=== PATIENT | female | born 1945 | race Caucasian/White ===

== ENCOUNTER → 2017-01-04 | Outpatient (CLI) | payer MEDICARE, OTHER ==
[~2017-01-04] MED LIST: ALBUTEROL2 PUFFS/17 IN; AMOXICILLIN 50500 MG PO; ASPIR-TRIN325 MG PO; ASTELIN NA137 MCG/BO; AZITHROMYCIN250 M1 PO; LEVAQUIN500 MG PO; LORTAB 5/500 501 TAB PT; MEDROL 4MG. DOSE4 MG PO; RANITIDINE HCL150 MG PO; TESSALON PERLE100 MG PO; VALIUM 10MG TAB10 MG PO; ZOFRAN ODT8 MG PO; ZYRTEC 10MG TAB10 MG PO
--- NOTE | 2017-01-05 08:53 | RADIOLOGY REPORT PS360 ---
MRI-UP EXT ANY JNT W/O-RT HISTORY: Right shoulder pain with limited range of motion and weakness RIGHT SHOULDER PAIN ORDERING PHYSICIAN: Mendel Stein MD PATIENT AGE: 71 years COMPARISON: Radiograph of 12/23/2016 TECHNIQUE: Standard multiplanar multiecho sequences are performed without contrast. FINDINGS: There is mild degree motion artifact with decreased yrnxuj-qz-dmuos ratio. IMPRESSION: There is mild acromioclavicular arthropathy with hypertrophic change of the acromioclavicular joint. There is thickening of the supraspinatus tendon consistent with tendinopathy/tendinosis. Along the posterior aspect of the supraspinatus tendon there is a full-thickness tear. The supraspinatus tendon and muscle however are not contracted with the main substance an anterior aspect of the supraspinatus tendon is intact. There is a small amount fluid in subacromial and subdeltoid region. There is some thickening of the infraspinatus tendon consistent with tendinopathy/tendinosis. The subscapularis and teres minor tendons are intact. No obvious labral tear. Bicipital tendon is in place. No bone bruise or fracture. There is slight increased T2 signal involving the greater tuberosity which may be seen with rotator cup disease. IMPRESSION: 1. Tendinopathy/tendinosis of the supraspinatus tendon with a full-thickness tear involving the posterior and lateral aspect of the supraspinatus tendon. The mid and anterior aspect of the supraspinatus tendon however is intact. No evidence of musculotendinous retraction. 2. No other significant anomalies evident
== END ==
LOC: RAD 14:45
DX: M25.511 Pain in right shoulder (principal)

== ENCOUNTER → 2017-04-28 | Outpatient (CLI) | payer MEDICARE, OTHER ==
--- NOTE | 2017-04-28 13:40 | RADIOLOGY REPORT PS360 ---
FEMUR-RT-2 VIEWS HISTORY: Right leg pain with history of lung cancer RT LEG PAIN, LUNG CA ORDERING PHYSICIAN: Mendel Stein MD PATIENT AGE: 71 years COMPARISON: None FINDINGS: No fracture or dislocation. No lytic or blastic change. IMPRESSION: Negative right femur.
--- NOTE | 2017-04-28 13:41 | RADIOLOGY REPORT PS360 ---
HIP RT 2-3V W/PELVIS IF PERFOR HISTORY: Right hip pain RT LEG PAIN, LUNG CA ORDERING PHYSICIAN: Mendel Stein MD PATIENT AGE: 71 years COMPARISON: None FINDINGS: No fracture or dislocation is evident. There are mild osteoarthritic changes of the hip. No lytic or blastic change. IMPRESSION: 1. No acute finding. 2. Mild osteoarthritic change. If pain persists, consider bone scan for further evaluation in this patient with history of lung cancer
--- NOTE | 2017-04-28 13:42 | RADIOLOGY REPORT PS360 ---
KNEE-3 VIEWS-RT HISTORY: RT LEG PAIN, LUNG CA ORDERING PHYSICIAN: Mendel Stein MD PATIENT AGE: 71 years COMPARISON: None FINDINGS: No fracture or dislocation. No lytic or blastic change. Normal mineralization. No significant arthritic changes evident. No other significant findings IMPRESSION: Negative Knee, no bony destructive process. Consider whole body bone scan for further evaluation if pain persists in this patient with history of lung cancer
== END ==
LOC: RAD 12:06
DX: M79.604 Pain in right leg (principal); C34.92 Malignant neoplasm of unspecified part of left bronchus or lung

== ENCOUNTER → 2017-05-13 | Outpatient (CLI) | payer MEDICARE, OTHER ==
[~2017-05-13] MED LIST changes: +ACETAMINOPHEN &1 TA1 PO; +DIAZEPAM10 M1 PO; +FAMOTIDINE 20MG20 MG PO; +GABAPENTIN100 MG PO
[2017-05-13 12:39] LABS: BUN 10 mg/dL (7-18)
[2017-05-13 12:43] LABS: GFR (ESTIMATED) 71 ML/MIN (59-)
--- NOTE | 2017-05-13 14:20 | RADIOLOGY REPORT PS360 ---
CT SOFT TISSUE NECK W/CONTRAST INDICATION: Bilateral palpable neck masses with history of lung cancer PALPATABLE MASS NECK ORDERING PHYSICIAN: Mendel Stein MD PATIENT AGE: 71 years COMPARISON: None TECHNIQUE: Axial images are obtained with 75 mL's of Isovue-370 contrast. Sagittal and coronal reformatted images are reviewed as well. FINDINGS: No cervical adenopathy is evident. BBs are placed over the area of palpable abnormality. Palpable abnormalities correspond to mildly prominent submandibular lymph nodes appear symmetric. No submandibular mass is evident. There are small bilateral cervical nodes measuring up to 1.9 x 0.9 cm and the left jugular chain and 1.2 x 0.6 cm and the right jugular chain representing level 2 lymph nodes. The thyroid gland has an unremarkable appearance. There are small nodes in the mediastinum and axilla. The glottic region and nasopharynx and epiglottis have an unremarkable appearance. Centrilobular emphysematous changes are present and there is mild scarring in the lung apices. No acute bony findings. IMPRESSION: 1. Bilateral palpable neck masses corresponds to prominent submandibular glands. 2. There are small bilateral cervical lymph nodes measuring up to 1.9 x 0.9 cm on the left.
== END ==
LOC: RAD 12:20
PROVIDERS: Family Medicine
DX: R22.1 Localized swelling, mass and lump, neck (principal)
CPT/HCPCS: Q9967

== ENCOUNTER 2017-05-27 16:21 | Inpatient (IN) | payer MEDICARE, OTHER ==
[~2017-05-27] VITALS: Ht 162.6 cm; Wt 53.3 kg
[~2017-05-27 16:21] MED LIST changes: -ACETAMINOPHEN &1 TA1 PO; -DIAZEPAM10 M1 PO; -FAMOTIDINE 20MG20 MG PO; -GABAPENTIN100 MG PO
[2017-05-27 16:24] VITALS: BP 119/67
--- NOTE | 2017-05-27 16:39 | Emergency Room Report ---
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 N Clinical Suspician of Infection? N Mental Status: 1 - Regular (Normal Baseline) Sepsis Risk:Low Sepsis Risk Have you (or family members/close friends) recently traveled outside the [place]? N If Yes, where/when: Have you had exposure to infectious disease within the past month? TB? Other? Specify: Source patient, RN notes reviewed Exam Limitations no limitations Comment Pt has a history of Lung Cancer and had a resection of left lung in September, and is still on Chemotherapy. Over the past 2 days she has developed a bad cough with Clear white phlegm production and become more SOA She has not been running a fever but has a temp=99.1 today. She is on inhalers at home but not on home O2 and no nebulizer at home Cardiac Chest Pain Chest pain indicative of cardiac No ALLERGIES Coded Allergies: fexofenadine (HEART RACES 05/27/17) codeine (NA-NAUSEA/VOMITING 05/27/17) metronidazole (From FLAGYL) (NA-NAUSEA/VOMITING 05/27/17) morphine (NA-NAUSEA/VOMITING 05/27/17) Home Medications Active Scripts Ondansetron (Zofran 8MG Odt) 8 MG PO Q8HP PRN nausea #20 ODT Prov: 08/06/14 Aspirin (Aspir-Hannah) 325 MG PO DAILY #30 ECT Ref 11 Prov: 11/08/13 Reported Medications Cetirizine Hcl (All Day Allergy) 10 MG PO DAILY Albuterol (Albuterol Inhaler 17GM) 2 PUFFS IN BID #1 INH AZELASTINE HCL (Astelin) 2 SPRAY NA BID #1 BOT Ranitidine Hcl (Ranitidine 150MG) 300 MG PO BID Diazepam (Valium 10MG) 10 MG PO BID Acetaminophen W/ Hydrocodone (Lortab 5/500) 10 MG PT BID Levofloxacin (Levaquin 500MG) 500 MG PO DAILY History Medical History General CAD? No Angina: Yes MS: No Hypertension? No Hyperlipidemia? No CHF? No DVT? No PE? No COPD? Yes Asthma? No Anemia? No GERD? No Gastric ulcers? No GI Bleed? No Hernia? No Thyroid Problems? No Hypothyroidism? No CVA? Yes Seizures? No Diabetes? No Renal Insuffiency? No End Stage Renal Disease? No UTI? No Stones? No BPH? No GB Disease: Yes Nephritic Syndrome? No Asplenia? No Hepatitis? No Sickle Cell Disease? No Arthritis? No Migraines? No Cataracts? No Glaucoma? No MRSA? No HIV? No TB? No Anxiety? No Depression? No Cancer? Yes Site: LUNG Immunization Hx Ped.Immunizations UTD Yes DT/Tetanus < 1 YR AGO Flu 2YRSorMore Pneumonia Refuses Surgical Hx Previous Surgery?Y CYST RT BREAST TUBAL GALLBLADDER LEFT ROTATOR CUFF LEFT LUNG CA SURGERY Family History Family Hx Diabetes No CAD No Hypertension Yes Hyperlipidemia Yes Cancer Yes TB No Social History Smoking Hx Smoker: Current Every Day Smoker Tobacco: Yes Type Cigarettes Packs/day < 1 Pack Alcohol Alcohol: No Review of Systems All Other Systems Reviewed and Negative Constitutional see HPI Respiratory see HPI Physical Exam Vital Signs Vital Signs Date Time Temp Pulse Resp B/P Pulse O2 O2 Flow FiO2 Ox Delivery Rate 05/27 1642 76 05/27 1624 99.1 125 18 119/67 67 General Appearance mild distress Respiratory Status Yes: respiratory distress. Lung Sounds bilateral: rales, rhonchi. Cardiovascular regular rate/rhythm Neurologic alert, alum operator II-XII nml as tested, normal exam Medical Decision Making LABS/Meds/Orders Pt receiving controlled substance in ED? No Results/Orders Laboratory Tests 05/27/17 1702: ABG pH 7.41, ABG pCO2 (Temp Corrct 52.4 H, ABG pO2 (Temp Correct 27.0 *L, ABG HCO3 32.5 H, ABG Total CO2 34.1 H, ABG O2 Sat (Calculated) 51.7 *L, ABG Base Excess 7.8 H, Sina Test ACCEPTABLE 05/27/17 1642: Lactic Acid Cancelled 05/27/17 1642: Sodium Cancelled, Potassium Cancelled, Chloride Cancelled, Carbon Dioxide Cancelled, BUN Cancelled, Creatinine Cancelled, Estimated Creat Clear Cancelled, Estimated GFR (MDRD) Cancelled, Glucose Cancelled, Calcium Cancelled, Total Bilirubin Cancelled, AST Cancelled, ALT Cancelled, Alkaline Phosphatase Cancelled, Total Protein Cancelled, Albumin Cancelled, Globulin Cancelled, Albumin/Globulin Ratio Cancelled, WBC Cancelled, RBC Cancelled, Hgb Cancelled, Hct Cancelled, MCV Cancelled, RDW Cancelled, Plt Count Cancelled, Gran % Cancelled, Gran # Cancelled, Lymphocytes % Cancelled, Eosinophils % Cancelled, Basophils % Cancelled, Lymphocytes # Cancelled, Eosinophils # Cancelled, Basophils # Cancelled, PUBS MCHC Cancelled, MCH Cancelled 05/27/17 163: Lactic Acid 1.6 05/27/17 163: Sodium 143, Potassium 3.3 L, Chloride 101, Carbon Dioxide 32, BUN 9, Creatinine 0.8, Estimated Creat Clear 54, Estimated GFR (MDRD) 71, Glucose 110 H, Calcium 9.3, Total Bilirubin 0.6, AST 20, ALT 17, Alkaline Phosphatase 129 H, Total Protein 7.3, Albumin 3.1 L, Globulin 4.2 H, Albumin/Globulin Ratio 0.7 L, WBC 9.0, RBC 3.37 L, Hgb 10.4 L, Hct 33.0 L, MCV 98.2 H, RDW 18.1 H, Plt Count 86 L, MPV 9.3, Gran % 74.1, Gran # 6.7, Lymphocytes % 16.2, Monocytes % 8.4, Eosinophils % 1.0, Basophils % 0.3, Lymphocytes # 1.5, Monocytes # 0.8, Eosinophils # 0.1, Basophils # 0.0, PUBS MCHC 31.4 L, MCH 30.8 Current Medication Orders Sig/Abdi Start time Last Medication Dose Route Stop Time Status Admin Albuterol/Ipratropium 0 .STK-MED ONE 05/27 1647 DC INH Albuterol/Ipratropium 3 ML ONCE ONE 05/27 1645 DC INH 05/27 1646 Sodium Chloride 1,000 ML .Q1H1M 05/27 1645 DC IV 05/27 1745 Sodium Chloride 10 ML PRN PRN 05/27 1645 AC IV 05/28 164 Albuterol/Ipratropium 3 ML ONCE ONE 05/27 1630 DC 05/27 INH 05/27 1631 1658 Sodium Chloride 10 ML PRN PRN 05/27 1630 AC IV 05/28 1630 Orders Procedure Date/time Status DIET-NOTHING BY MOUTH 05/[address] CHEST W/ CONTRAST 05/[address] CHEST SCAN REQ 05/27 1846 Complete IV SALINE LOCK 05/27 1642 Active RT REQUEST DUONEB 05/27 1641 Active ARTERIAL BLOOD GAS REQUEST 05/27 1641 Active IV SALINE LOCK 05/27 1641 Active OXYGEN PER NURSE 05/27 1641 Active CULTURE, SPUTUM 05/27 1641 Active CULTURE, BLOOD 05/27 1641 Active LACTIC ACID 05/27 1641 Complete CBC WITH AUTO DIFF 05/27 1641 Complete CHEM 12 PROFILE 05/27 1641 Complete XRAY/CT/US XRAY/CT/US XRAY chest XR interpretation by discussed w/radiologist Xray Results RLL pneumonia and ? left hilar infiltrate...could be mass, could be scar tissue...Radiologist recommends CT with IV contrast Departure Departure Time of Disposition 1951 Disposition Still a Patient Clinical Impression Primary Impression: Lung cancer Qualifiers: Laterality: left Lung location: hilum of lung Qualified Code: C34.02 - Malignant neoplasm of left main bronchus Secondary Impressions: COPD with acute exacerbation RLL pneumonia Qualifiers: Pneumonia type: due to unspecified organism Qualified Code: J18.1 - Lobar pneumonia, unspecified organism Condition STABLE Referrals Mendel Stein MD (Family) Additional Instructions Admitted to OBS to Dr. Stein with Dr. Adan covering for Pneumonia and Lung cancer Discharge Counseling Counseled pt/family regarding diagnosis, test results, follow up needs ED Critical Care Critical Care No If Critical Care minutes are documented, the time involved in the performance of seperately reportable procedures was not counted toward critical care time documented. I directly delivered medical care to this critically ill and/or injured patient. Timely evaluation and treatment was necessary to address the significant organ system(s) dysfunction present in this patient. at 1955
[2017-05-27 17:01] LABS: LYMPH # 1.5 K/mm3 (0.7-4.5); LYMPH % 16.2 % (10-50.0)
[2017-05-27 17:14] LABS: HEMOGLOBIN 10.4 g/dL (12.2-16.2)
[2017-05-27 17:14] LABS: ARTERIAL TCO2 34.1 MMOL/L (23-27)
[2017-05-27 17:15] LABS: ARTERIAL ABE 7.8 MMOL/L (-2.4-+2.3)
[2017-05-27 17:16] LABS: ALLEN'S TEST ACCEPTABLE
--- NOTE | 2017-05-27 18:20 | RADIOLOGY REPORT PS360 ---
CHEST-PORTABLE HISTORY: SOA ORDERING PHYSICIAN: Gorge Leung MD PATIENT AGE: 71 years COMPARISON: 01/20/2017 FINDINGS: Normal heart size. There is some ectasia/tortuosity of the thoracic aorta.. Clips are present in the left perihilar region. There is some increased density in this area. Somewhat more prominent than when compared to the previous exam and could be related to underlying pneumonia or residual or recurrent neoplasm. Chronic changes are present in the lingula on the left. Patchy density is present in the right lung base suspicious for infiltrate. No acute bony anomalies. IMPRESSION: 1. Patchy infiltrate and/or atelectatic change in the right lung base. 2. Postsurgical changes left hilum with increasing density which may be due to consolidation and/or residual recurrent neoplasm versus fibrotic change. Chest CT with contrast may be of further value
--- OUTSIDE RECORDS SUMMARY | 2017-05-27 19:18 | External Medical Summary Rpt ---
Author Author [facility] Address Unknown Phone Unavailable Care Team Providers Care Counter Clerk Name Role Phone Chriss YOUNG PCP [phone] Encounter [facility] [id number] Date(s): 10/06/16 - 10/06/[facility] [address] [place] [phone]- [phone] Discharge Disposition: OP Self Care or Home Attending Physician: SAY MARTINES MD-CAT Admitting Physician: SAY MARTINES MD-CAT Referring Physician: SAY MARTINES MD-CAT Reason for Visit OTHER NONSPECIFIC ABNORMAL FINDING OF LUNG FIELD Vital Signs No data available for this section Problem List Condition Effective Status Health Informant Dates Status Allergic Active rhinitis(Con firmed) Arthritis(Co Active nfirmed) Back Active pain(Confirm ed) Bronchitis(C Active onfirmed) Bursitis(Con Active firmed) COPD Active (chronic obstructive pulmonary disease)(Con firmed) GERD - Active Gastro-esoph ageal reflux disease(Conf irmed) H/O: TIA- Active 2014(Confirm ed) Incontinence Active , urinary(Conf irmed) Lung Active mass(Confirm ed) Pneumonia- Active 2014 & 2013(Confirm ed) Sinusitis(Co Active nfirmed) Allergies, Adverse Reactions, Alerts Substance Reaction Severity Status Tara palpitations Active codeine Nausea and vomiting Active morphine Nausea and vomiting Active Medications No data available for this section Results No data available for this section Immunizations No data available for this section Procedures No data available for this section Social History Social History Response Type Smoking Status Current every day smoker; Smoking Frequency Within Last 30 Days Five or more cigarettes per day; Years of Tobacco Use 50; Packs/Tins Daily .5; Used Tobacco, but Quit No; Month Tobacco Last Used September 2015; Smokeless Tobacco Use in Last 30 Days Yes Assessment and Plan No data available for this section Hospital Discharge Instructions No data available for this section
--- OUTSIDE RECORDS SUMMARY | 2017-05-27 19:18 | External Medical Summary Rpt ---
Author Author [facility] Organization [facility] Address Unknown Phone Unavailable Care Team Providers Care Client Services Associate Name Role Phone Chriss YOUNG PCP [phone] Encounter [facility] Date(s): 12/06/16 - 12/13/16 [facility] [address] [place] [id number]- Discharge Disposition: OP Self Care or Home Attending Physician: KELSIE PALMER MD-ONC Admitting Physician: KELSIE PALMER MD-ONC Referring Physician: KELSIE PALMER MD-ONC Reason for Visit Z85.110 Vital Signs Most recent 1 to oldest [Reference Range]: Temperature, 97.8 Deg F Fahrenheit (12/13/16 8:42 AM) [96.8-99.7 Deg F] Clinical 36.6 Deg C Temperature, (12/13/16 8:42 AM) C Peripheral 78 bpm Pulse Rate (12/13/16 8:42 AM) [60-100 bpm] Blood 113/64 mmHg Pressure (12/13/16 8:42 AM) [90-140/60-9 0 mmHg] Oxygen 91 % Saturation *LOW* [94-100 %] (12/13/16 8:42 AM) Height Measured Source (12/13/16 8:42 AM) Height Entry [place] Format (12/13/16 8:42 AM) Height/Lengt 64 Inch h ARAB[place] (12/13/16 8:42 AM) CLINICALHEIG 162.56 cm HT (12/13/16 8:42 AM) Weight Standing scale Source (12/13/16 8:42 AM) Weight Entry [place] Format (12/13/16 8:42 AM) Weight 141 lb [place] lb (12/13/16 8:42 AM) CLINICALWEIG 64.09 kg HT (12/13/16 8:42 AM) Body Surface 1.69 m2 Area (BSA) (12/13/16 8:42 AM) Body Mass 24.3 kg/m2 Index *HI* [19.0-24.0 (12/13/16 8:42 AM) kg/m2] [place] Body 54 kg Weight (12/13/16 8:42 AM) Problem List Condition Effective Status Health Informant Dates Status Allergic Active rhinitis(Con firmed) Arthritis(Co Active nfirmed) Back Active pain(Confirm ed) Bronchitis(C Active onfirmed) Bursitis(Con Active firmed) CA - Lung Active patient cancer(Confi rmed) COPD Active (chronic obstructive pulmonary disease)(Con firmed) GERD - Active Gastro-esoph ageal reflux disease(Conf irmed) H/O: TIA- Active 2014(Confirm ed) Incontinence Active , urinary(Conf irmed) Lung Active mass(Confirm ed) Pneumonia- Active 2014 & 2013(Confirm ed) Sinusitis(Co Active nfirmed) Allergies, Adverse Reactions, Alerts Substance Reaction Severity Status Tara palpitations Active codeine Nausea and vomiting Active morphine Nausea and vomiting Active Medications acetaminophen-hydrocodone ([place] 10 mg-325 mg oral tablet)1 Tab, Oral, Every 4 Hours, As Needed, for pain, Refills: 0 albuterol-ipratropium (Combivent Respimat)2 Puff, Inhalation, Two Times A Day, Refills: 0 aspirin (aspirin 325 mg oral tablet) 1 Tab, Oral, Every Day, Refills: 0 azelastine nasal (azelastine 137 mcg/inh ( 0.1%) nasal spray)1 [place], Nasal, Two Times A Day, Refills: 0 diazepam (diazepam 10 mg oral tablet)1 Tab, Oral, Two Times A Day, As Needed, for anxiety, Refills: 0 esomeprazole (NexIUM 40 mg oral delayed release capsule)1 Cap, Oral, Every Day, Refills: 0 ibuprofen (ibuprofen 800 mg oral tablet) 1 Tab, Oral, Three Times A Day, Refills: 0 montelukast (Singulair 10 mg oral tablet) 1 Tab, Oral, At Bedtime, Refills: 0 Results COAGULATION Most recent 1 to oldest [Reference Range]: PT [9.5-11.3 10.4 Second(s) Second(s)] (12/13/16 8:32 AM) INR 1.0 [0.0-1.1] (12/13/16 8:32 AM) Immunizations No data available for this section Procedures Procedure Date Related Body Site Diagnosis elbow surgury lung resection Social History Social History Response Type Tobacco Last Used: 12/13/16. Assessment and Plan No data available for this section Hospital Discharge Instructions No data available for this section
--- OUTSIDE RECORDS SUMMARY | 2017-05-27 19:18 | External Medical Summary Rpt ---
Author Author [facility] Organization [facility] Address Unknown Phone Unavailable Care Team Providers Care Integrated Logistics Operations Manager Name Role Phone Chriss YOUNG PCP [phone] Encounter [facility] Date(s): 12/06/16 - 12/13/16 [facility] [address] [place] [phone]- Discharge Disposition: OP Self Care or Home [...] Measured Source (12/13/16 8:42 AM) Height Entry [place] Format (12/13/16 8:42 AM) Height/Lengt 64 Inch h [place] (12/13/16 8:42 AM) CLINICALHEIG 162.56 cm HT (12/13/16 8:42 AM) Weight Standing scale Source (12/13/16 8:42 AM) Weight Entry [place] Format (12/13/16 8:42 AM) Weight 141 lb [place] lb (12/13/16 8:42 AM) CLINICALWEIG 64.09 kg HT (12/13/16 8:42 AM) Body Surface 1.69 m2 Area (BSA) (12/13/16 8:42 AM) Body Mass 24.3 kg/m2 Index *HI* [19.0-24.0 (12/13/16 8:42 AM) kg/m2] [place] Body 54 kg Weight (12/13/16 8:42 AM) [...] morphine Nausea and vomiting Active Medications acetaminophen-hydrocodone ([place] 10 mg-325 mg oral tablet)1 Tab, Oral, Every 4 Hours, As Needed, for pain, Refills: 0 albuterol-ipratropium (Combivent Respimat)2 Puff, Inhalation, Two Times A Day, Refills: 0 aspirin (aspirin 325 mg oral tablet) 1 Tab, Oral, Every Day, Refills: 0 azelastine nasal (azelastine 137 mcg/inh ( 0.1%) nasal spray)1 [place], Nasal, Two Times A Day, Refills: 0 [...]
--- OUTSIDE RECORDS SUMMARY | 2017-05-27 19:18 | External Medical Summary Rpt ---
Author Author [facility] Organization [facility] Address Unknown Phone Unavailable Care Team Providers Care Parts Delivery Driver Name Role Phone Chriss YOUNG PCP [phone] Encounter [facility] [id number] Date(s): 10/06/16 - 10/06/16 [facility] [address] [place] [phone] Discharge Disposition: OP Self Care or Home [...]
--- OUTSIDE RECORDS SUMMARY | 2017-05-27 19:19 | External Medical Summary Rpt | CCD ---
Author Author , JOSEPH RUIZ Address Unknown Phone [email or web address] Care Team Providers Care Rehab Specialist Name Role Phone Chriss PADILLA MD PSC, A Unavailable Unavailable Alfonso PADILLA MD PSC [facility], Unavailable Unavailable EDMUND [facility]B [employer] [employer] Unavailable Unavailable [facility] [employer] Unavailable Unavailable CAYETANO GONZALEZ MD, Unavailable Unavailable CAYETANO GONZALEZ MD [facility] Unavailable Unavailable [facility], [facility], Unavailable Unavailable [facility] SATURN[facility] TAI, Unavailable Unavailable SATURN[facility] T[facility] [place] Un[facility] [employer], Unavailable Unavailable [facility] Unavailable Unavailable INC, [facility] FELIX TRA, FELIX TRA Unavailable Unavailable [facility] KILPELA JEA, KILPELA Unavailable Unavailable JEA ALESHIA B, ALESHIA B Unavailable Unavailable [facility], Unavailable Unavailable [facility], Unavailable Unavailable [facility] MARCELINA VARELA, Unavailable Unavailable MARCELINA NIX, HUNTER Unavailable Unavailable BOYD Purpose Continuity of Care Document - 08-30-2012 through 2016 Problems Code Diagnosis DOS Provider Status 65439 COMPLETE 04-16-2014 [facility] RUPTURE OF ORTHOPAEDIC ROTATOR S PLC CUFF 17643 PAIN IN 04-03-2014 [facility] JOINT, RADIOLOGY SHOULDER REGION 8404 ROTATOR 03-27-2014 Chriss PADILLA CUFF SPRAIN PSC AND STRAIN V700 ROUTINE 03-27-2014 Chriss PADILLA GENERAL PSC MEDICAL [email or web address] [email or web address] FACL 8406 SUPRASPINAT 02-20-2014 [place] SPRAIN MEDICAL AND STRAIN IMAGING ASS 7820 DISTURBANCE 02-13-2014 Chriss PADILLA OF SKIN PSC SENSATION 7234 BRACHIAL 01-16-2014 [place] NEURITIS OR [facility]IROPRACTI [facility] CENTE RADICULITIS NOS 7391 NONALLOPATH 01-16-2014 [place] IC LESION CHIROPRACTI OF CERVICAL C CENTE REGION NEC 35129 UNSPECIFIED 01-09-2014 A Alfonso PADILLA VIRAL PSC INFECTION IN CCE & UNS SITE 496 CHRONIC 01-09-2014 A Alfonso PADILLA AIRWAY PSC OBSTRUCTION NEC 44506 SPRAIN AND 12-28-2013 A Alfonso PADILLA STRAIN OF PSC UNSPECIFIED SITE OF FOOT 80626 PAIN IN 12-27-2013 [place] JOINT, MEDICAL ANKLE AND IMAGING ASS FOOT 34485 OTHER 12-27-2013 [place] SYMPTOMS MEDICAL REFERABLE IMAGING ASS TO ANKLE AND FOOT JOINT 81345 UNSPECIFIED 11-07-2013 [place] CEREBRAL MEDICAL ARTERY IMAGING ASS OCCLUSION W/INFARCT 436 ACUTE BUT 11-07-2013 [place] ILL-DEFINED MEDICAL IMAGING ASS CEREBROVASC ULAR DISEASE 44445 OSTEOARTHRO 11-07-2013 [place] S UNSPEC MEDICAL WHETHER IMAGING ASS GEN/LOC SHLDR REGION 55187 ALTERED 11-07-2013 [place] MENTAL MEDICAL STATUS [facility] 65915 SHORTNESS 11-07-2013 [place] OF BREATH MEDICAL IMAGING ASS E8889 UNSPECIFIED 11-07-2013 [place] FALL [facility]ICAL [facility] 4660 ACUTE 10-31-2013 A Alfonso PADILLA BRONCHITIS PSC 4928 OTHER 10-31-2013 [place] EMPHYSEMA [facility]ICAL [facility]ING [facility] 35607 CHEST PAIN 10-31-2013 [facility] 5990 URINARY 09-24-2013 A Alfonso PADILLA TRACT PSC INFECTION SITE NOT SPECIFIED 7881 DYSURIA 09-24-2013 [facility] 98979 CALCANEAL 06-29-2013 [place] SPUR MEDICAL IM[facility]ING ASS 7295 PAIN IN 06-29-2013 [place] SOFT MEDICAL TISSUES OF IMAGING ASS LIMB 845.00 845.00 06-29-[address] [facility] 41201 UNSPECIFIED 06-29-2013 [facility] SITE OF ANKLE SPRAIN AND STRAIN 9599 INJURY 06-29-2013 [place] OTHER AND MEDICAL UNSPECIFIED IMAGING ASS UNSPECIFIED SITE E849.0 E849.0 06-29-2013 Yuli ACCIDENT IN [facility] E885.9 E885.9 FALL 06-29-2013 Yuli FROM [facility] SLIPPING, Hospital TRIPPING, OR STUMBLING NEC 490 BRONCHITIS 03-28-2013 Chriss AKUR MD PSC SPECIFIED ACUTE OR CHRONIC 30919 OTHER 03-06-2013 [facility] ACT NOT OBSCURING VISION 3671 MYOPIA 03-06-2013 [facility] 23114 REGULAR 03-06-2013 [employer] [facility] 4619 ACUTE 08-30-2012 Chriss PADILLA SINUSITIS, PSC UNSPECIFIED Allergies, Adverse Reactions, Alerts Type Drug Allergy Adverse Reaction to Substance Substance Reaction Severity Codeine Unknown Unknown Morphine NA-NAUSEA Unknown Fexofenadine HEART RACES Unknown Vital Signs 06-29-2013 19:37 Name Value Interpretat Reference Comment ion Range Body 97.5 [degF] Temperature BP 73 mm[Hg] Diastolic BP Systolic 112 mm[Hg] Heart 68 /min Rate/Pulse O2% 98 % Respiratory 16 /min Rate 06-29-2013 19:27 Name Value Interpretat Reference Comment ion Range BP 73 mm[Hg] Diastolic BP Systolic 112 mm[Hg] Heart 68 /min Rate/Pulse O2% 98 % Respiratory 16 /min Rate Results Labs Lab Lab Date Result Refere Interp Status Commen Order Detail nces retati t Range on CREATININE (05-13-2017 12:23) Estimat = 71 59- complet ed 017 ML/MIN ed glomeru 12:23 lar filtrat ion rate (GF Comment: REFERENCE RANGE: >60 ML/MIN/1.73 SQUARE METERS Comment: If this patient is -Bruneian, then multiply the Comment: result by 1.210. Serum 05-13-2 = 0.8 0.55-1. complet or 017 mg/dL 02 ed plasma 12:23 creatin ine measure ment ( Serum or plasma urea nitrogen measuremen (05-13-2017 12:23) Serum 10-13-2 = 10 7-18 complet or 017 mg/dL ed plasma 12:23 urea nitroge n measure men CBC with Ordered Manual Differential panel in Blood (02-15-2017 13:36) LYMPH 11 % 10% - Normal complet 017 50% ed 13:36 Platele NORMAL complet ts 017 ed [Presen 13:36 ce] in Blood by Light microsc opy Potassium Bld-sCnc (01-25-2017 09:59) Potassi 3.90 3.5-5.3 complet um 017 mmol/L ed BldA-sC 09:59 nc Procedures Procedure DOS Code Location Performer Comment ARTHROSCO 57723 [facility] [place] PY 4 [place] BOY[place] SHOULDER ORTHOPAED ROTATOR ICS PLC CUFF REPAIR RADIOLOGI 53615 [place] RADMANESH C EXAM 4 RADIOLOGY SHA CHEST 2 VIEWS FRONTAL&L ATERAL MRI ANY 48899 [place] SATURNINO JT UPPER 4 MEDICAL TAI EXTREMITY IMAGING W/O ASS CONTRAST MATRL CHIROPRAC 24725 ERIN SHAFFER TIC 4 SEB MANIPULAT CHIROPRAC JR TX TIC CENTE SPINAL 1-2 REGIONS THERAPEUT 44661 A C KILPELA IC 4 VALERIE KRUSE PROPHYLAC PSC TIC/DX INJECTION SUBQ/IM INJ J0702 A C KILPELA BETAMETHA 4 VALERIE KRUSE SONYinka PSC ACETATE & PHOSPHATE 3 MG INJECTION J1030 A C KILPELA 4 VALERIE KRUSE METHYLPRE PSC DNISOLONE ACETATE 40 MG RADEX 03768 [place] SATURN[place] ANKLE 4 MEDICAL TAI COMPLETE IMAGING MINIMUM 3 ASS VIEWS DUPLEX 02767 [place] SAT[place] SCAN 4 MEDICAL TAI EXTRACRAN IMAGING [place] [address] [place] SAT[place] HEAD/BRAI 4 MEDICAL TAI N W/O IMAGING CONTRAST ASS MATERIAL RADIOLOGI 21063 [place] SATURNINO C 4 MEDICAL TAI EXAMINATI IMAGING ON CHEST ASS SINGLE VIEW FRONTAL RADEX 04105 [place] SATURN[place] SHOULDER 4 MEDICAL TAI COMPLETE IMAGING MINIMUM 2 ASS VIEWS RADIOLOGI 31545 [place] SATURNINO C EXAM 4 MEDICAL TAI CHEST 2 IMAGING VIEWS ASS FRONTAL&L ATERAL URINLS 37191 A C ASHLYPELA DIP 4 VALERIE HOPPER JEChriss STICK/TAB PSC LET REAGNT NON-AUTO MICRSCPY CULTURE 57998 [facility] BACTERIAL 4 DIAGNOSTI DIAGNOSTI CS CS QUANTTATI VE COLONY COUNT URINE CULTURE 51261 [facility] BCT 4 DIAGNOSTI DIAGNOSTI ISOL&PRSM CS CS PTV ID ISOLATE EA URINE MRI ANY 34180 CENTRAL FELIX TRA JT LOWER 4 [place] EXTREM ORTHOPAED W/O ICS PLC CONTRAST MATRL RADEX 35754 [facility] FRANCISSATURNINO ANKLE 3 MEDICAL TAI COMPLETE IMAGING MINIMUM 3 ASS VIEWS RADEX 18354 [facility] MAT[place]OS FOOT 3 MEDICAL TAI COMPLETE IMAGING MINIMUM 3 ASS VIEWS CRTCHS E0114 [facility] UNDARM 3 OTH THAN WOOD PAIR PAD TIP&HNDGR IP RADIOLOGI 21786 [facility] FRANCISSATURNINO C 3 MEDICAL TAI EXAMINATI IMAGING ON TIBIA ASS & FIBULA 2 VIEWS INJECTION J0696 A C KILPELA 3 VALERIE KRUSE CEFTRIAXO PSC NE SODIUM PER 250 MG THERAPEUT 49902 A C KILPELA IC 3 VALERIE KRUSE PROPHYLAC PSC TIC/DX INJECTION SUBQ/IM INJ J0702 A C KILPELA BETAMETHA 3 VALERIE KRUSE SONE PSC ACETATE & PHOSPHATE 3 MG INJECTION J1030 A C KILPELA 3 VALERIE KRUSE METHYLPRE PSC DNISOLONE ACETATE 40 MG THERAPEUT 29369 A C KILPELA IC 3 VALERIE KRUSE PROPHYLAC PSC TIC/DX INJECTION SUBQ/IM INJ J2930 A C KILPELA METHYLPRD 3 VALERIE KRUSE NISOLONE PSC SODIUM SUCCNAT TO 125 MG OPHTH [address] [place] [address] NETWORK &EVAL LTD INTERMEDI ATE ESTAB PT Encounters Encounter Start End Date Code Location Performer Type Date OFFICE 91756 A C [place] OUTPATIEN 4 4 VALERIE KRUSE T VISIT PSC 15 MINUTES OFFICE 09036 [facility] OUTPATIEN 4 4 [place] BOY[place] T VISIT ORTHOPAED 15 ICS PLC MINUTES OFFICE 08335 A C [place] OUTPATIEN 4 4 VALERIE KRUSE T VISIT PSC 15 MINUTES OFFICE 32935 A C K[place]PED[place] OUTPATIEN 4 4 VALERIE KRUSE T VISIT PSC 15 MINUTES OFFICE 11111 A C KILPELA OUTPATIEN 4 4 VALERIE KRUSE T VISIT PSC 15 MINUTES OFFICE 71411 A C KILPELA OUTPATIEN 4 4 VALERIE KRUSE T VISIT PSC 15 MINUTES OFFICE 27299 A C KILPELA OUTPATIEN 4 4 VALERIE KRUSE T VISIT PSC 15 MINUTES [facility] YULI - 4 4 [facility] T OFFICE 90031 A C KILPELA OUTPATIEN 4 4 VALERIE KRUSE T VISIT PSC 15 MINUTES OFFICE 87796 CENTRAL FELIX TRA OUTPATIEN 3 3 KEIRA T NEW 45 ORTHOPAED MINUTES ICS PLC OFFICE 33846 A C KILPELA OUTPATIEN 3 3 VALERIE KRUSE T VISIT PSC 15 MINUTES Emergency YENI Yuli GONZALEZ MD (ER) 3 18:49 3 19:39 [facility] OFFICE 14337 A C KILPELA OUTPATIEN 3 3 VALERIE KRUSE T VISIT PSC 15 MINUTES OFFICE 84303 A C KILPELA OUTPATIEN 3 3 VALERIE KRUSE T VISIT PSC 15 MINUTES OFFICE 67634 A C KILPELA OUTPATIEN 3 3 VALERIE KRUSE T VISIT PSC 15 MINUTES
--- OUTSIDE RECORDS SUMMARY | 2017-05-27 19:19 | External Medical Summary Rpt | CCD ---
Author Author , JOSEPH RUIZ Address Unknown Phone [email or web address] Care Team Providers Care Beef Cattle Specialist Name Role Phone Chriss PADILLA MD PSC, A Unavailable Unavailable Alfonso PADILLA MD PSC [facility]B, Unavailable Unavailable EDMUND SEB [facility] [employer] Unavailable Unavailable [facility] [employer] [employer] Unavailable Unavailable CAYETANO GONZALEZ MD, Unavailable Unavailable CAYETANO GONZALEZ MD [facility] Unavailable Unavailable [facility], [facility], Unavailable Unavailable [facility] SATURNINO TAI, Unavailable Unavailable SATURNINO TAI [place] Un[facility], Unavailable Unavailable [facility] Unavailable Unavailable INC, [facility] FELIX TRA, FELIX TRA Unavailable Unavailable [facility] Unavailable Unavailable [facility], [facility] KILPELA JEA, KILPELA Unavailable Unavailable JEA ALESHIA B, ALESHIA B Unavailable Unavailable [facility], Unavailable Unavailable [facility], Unavailable Unavailable [facility] MARCELINA VARELA, Unavailable Unavailable MARCELINA NIX, HUNTER Unavailable Unavailable BOYD Purpose Continuity of Care Document - 08-30-2012 through 2016 Problems Code Diagnosis DOS Provider Status 02897 COMPLETE 04-16-2014 [facility] RUPTURE OF ORTHOPAEDIC ROTATOR S PLC CUFF 72497 PAIN IN 04-03-2014 [facility] JOINT, RADIOLOGY SHOULDER REGION 8404 ROTATOR 03-27-2014 Chriss PADILLA CUFF SPRAIN PSC AND STRAIN V700 ROUTINE 03-27-2014 Chriss PADILLA GENERAL PSC MEDICAL [email or web address] [email or web address] FACL 8406 SUPRASPINAT 02-20-2014 [place] US SPRAIN MEDICAL AND STRAIN IMAGING ASS 7820 DISTURBANCE 02-13-2014 Chriss PADILLA OF SKIN PSC SENSATION 7234 BRACHIAL 01-16-2014 [place] NEURITIS OR CHIROPRACTI C CENTE RADICULITIS NOS 7391 NONALLOPATH 01-16-2014 [place] IC LESION CHIROPRACTI OF CERVICAL C CENTE REGION NEC 13520 UNSPECIFIED 01-09-2014 A Alfonso PADILLA VIRAL PSC INFECTION IN CCE & UNS SITE 496 CHRONIC 01-09-2014 A Alfonso PADILLA AIRWAY PSC OBSTRUCTION NEC 47801 SPRAIN AND 12-28-2013 A Alfonso PADILLA STRAIN OF PSC UNSPECIFIED SITE OF FOOT 10810 PAIN IN 12-27-2013 [place] JOINT, MEDICAL ANKLE AND IMAGING ASS FOOT 75961 OTHER 12-27-2013 [place] SYMPTOMS MEDICAL REFERABLE IMAGING ASS TO ANKLE AND FOOT JOINT 25423 UNSPECIFIED 11-07-2013 [place] CEREBRAL MEDICAL ARTERY IMAGING ASS OCCLUSION W/INFARCT 436 ACUTE BUT 11-07-2013 [place] ILL-DEFINED MEDICAL IMAGING ASS CEREBROVASC ULAR DISEASE 38796 OSTEOARTHRO 11-07-2013 [place] S UNSPEC MEDICAL WHETHER IMAGING ASS GEN/LOC SHLDR REGION 57935 ALTERED 11-07-2013 [place] MENTAL MEDICAL STATUS IMAGING ASS 51749 SHORTNESS 11-07-2013 [place] OF BREATH MEDICAL IMAGING ASS E8889 UNSPECIFIED 11-07-2013 [place] FALL MEDICAL IMAGING ASS 4660 ACUTE 10-31-2013 A Alfonso PADILLA BRONCHITIS PSC 4928 OTHER 10-31-2013 [place] EMPHYSEMA MEDICAL IMAGING ASS 55637 CHEST PAIN 10-31-2013 [facility]PEC[facility] 5990 URINARY 09-24-2013 A Alfonso PADILLA TRACT PSC INFECTION SITE NOT SPECIFIED 7881 DYSURIA 09-24-2013 [facility] 22860 CALCANEAL 06-29-2013 [place] SPUR MEDICAL IMAGING ASS 7295 PAIN IN 06-29-2013 [place] SOFT MEDICAL TISSUES OF IMAGING ASS LIMB 845.00 845.00 06-29-2013 Yuli SPRAIN OF [facility] 10578 UNSPECIFIED 06-29-2013 [facility] SITE OF ANKLE SPRAIN AND STRAIN 9599 INJURY 06-29-2013 [place] OTHER AND MEDICAL UNSPECIFIED IMAGING ASS UNSPECIFIED SITE E849.0 E849.0 06-29-2013 Yuli ACCIDENT IN [facility] E885.9 E885.9 FALL 06-29-2013 Yuli FROM [facility] SLIPPING, Hospital TRIPPING, OR STUMBLING NEC 490 BRONCHITIS 03-28-2013 Chriss KAUR MD PSC SPECIFIED ACUTE OR CHRONIC 55430 OTHER 03-06-2013 [facility] ACT NOT OBSCURING VISION 3671 MYOPIA 03-06-2013 [facility] 88117 REGULAR 03-06-2013 [employer] [facility] 4619 ACUTE 08-30-2012 Chriss [...] SQUARE METERS Comment: If this patient is -Senegalese, then multiply the Comment: result by 1.210. [...] Procedure DOS Code Location Performer Comment ARTHROSCO 91178 [place] [place] PY 4 [place] BOY[place] SHOULDER ORTHOPAED ROTATOR ICS PLC CUFF REPAIR RADIOLOGI 22283 [place] RADMANESH [place] EXAM 4 RADIOLOGY SHA CHEST 2 VIEWS FRONTAL&L ATERAL MRI ANY 05991 [place] SATURNINO JT UPPER 4 MEDICAL TAI EXTREMITY IMAGING W/O ASS CONTRAST MATRL CHIROPRAC 17989 ERIN SHAFFER TIC 4 SEB MANIPULAT CHIROPRAC JR TX TIC CENTE SPINAL 1-2 REGIONS THERAPEUT 12763 A C KILPELA IC 4 VALERIE KRUSE PROPHYLAC PSC TIC/DX INJECTION SUBQ/IM INJ J0702 A C KILPELA BETAMETHA 4 VALERIE KRUSE SONYinka PSC ACETATE & PHOSPHATE 3 MG INJECTION J1030 A C KILPELA 4 VALERIE KRUSE METHYLPRE PSC DNISOLONE ACETATE 40 MG RADEX 09155 [place] SATURNINO ANKLE 4 MEDICAL TAI COMPLETE IMAGING MINIMUM 3 ASS VIEWS DUPLEX 80483 [place] SATURNINO SCAN 4 MEDICAL TAI EXTRACRAN IMAGING [place] [address] [place] SATURNINO HEAD/BRAI 4 MEDICAL TAI N W/O IMAGING CONTRAST ASS MATERIAL RADIOLOGI 88551 [place] SATURNINO C 4 MEDICAL TAI EXAMINATI IMAGING ON CHEST ASS SINGLE VIEW FRONTAL RADEX 63723 [place] SATURNINO SHOULDER 4 MEDICAL TAI COMPLETE IMAGING MINIMUM 2 ASS VIEWS RADIOLOGI 88014 [place] SATURNINO C EXAM 4 MEDICAL TAI CHEST 2 IMAGING VIEWS ASS FRONTAL&L ATERAL URINLS 46167 A C ASHLYPELA DIP 4 VALERIE HOPPER JEChriss STICK/TAB PSC LET REAGNT NON-AUTO MICRSCPY CULTURE 68365 [facility] BACTERIAL 4 DIAGNOSTI DIAGNOSTI CS CS QUANTTATI VE COLONY COUNT URINE CULTURE 54342 [facility]ST BCT 4 DIAGNOSTI DIAGNOSTI ISOL&PRSM CS CS PTV ID [place]ATE [place] [address] CENTRAL FELIX TRA JT LOWER 4 [place] EXTREM ORTHOPAED W/O ICS PLC CONTRAST MATRL RADEX 70910 [facility] [place] FRANCISSATURNINO ANKLE 3 MEDICAL TAI COMPLETE IMAGING MINIMUM 3 ASS VIEWS RADEX 22357 [facility] [place] MATAMOROS FOOT 3 MEDICAL TAI COMPLETE IMAGING MINIMUM 3 ASS VIEWS CRTCHS E0114 [facility] INC. UNDARM 3 OTH THAN WOOD PAIR PAD TIP&HNDGR IP RADIOLOGI 98392 [facility] [place] FRANCISSATURNINO C 3 MEDICAL TAI EXAMINATI IMAGING ON TIBIA ASS & FIBULA 2 VIEWS INJECTION J0696 A C KILPELA 3 VALERIE KRUSE CEFTRIAXO PSC NE SODIUM PER 250 MG THERAPEUT 53429 A C KILPELA IC 3 VALERIE KRUSE PROPHYLAC PSC TIC/DX INJECTION SUBQ/IM INJ J0702 A C KILPELA BETAMETHA 3 VALERIE KRUSE SONE PSC ACETATE & PHOSPHATE 3 MG INJECTION J1030 A C KILPELA 3 VALERIE KRUSE METHYLPRE PSC DNISOLONE ACETATE 40 MG THERAPEUT 21419 A C KILPELA IC 3 VALERIE KRUSE PROPHYLAC PSC TIC/DX INJECTION SUBQ/IM INJ J2930 A C KILPELA METHYLPRD 3 VALERIE KRUSE NISOLONE PSC SODIUM SUCCNAT TO 125 MG OPHTH [address]51 [place] [address] NETWORK &EVAL LTD INTERMEDI ATE ESTAB PT Encounters Encounter Start End Date Code Location Performer Type Date OFFICE 33749 A C K[place]PED[place] OUTPATIEN 4 4 VALERIE KRUSE T VISIT PSC 15 MINUTES OFFICE 59145 [facility] OUTPATIEN 4 4 [place] T VISIT ORTHOPAED 15 ICS PLC MINUTES OFFICE 15316 A C [place] OUTPATIEN 4 4 VALERIE KRUSE T VISIT PSC 15 MINUTES OFFICE 28396 A C K[place] OUTPATIEN 4 4 VALERIE KRUSE T VISIT PSC 15 MINUTES OFFICE 35393 A C KILPELA OUTPATIEN 4 4 VALERIE KRUSE T VISIT PSC 15 MINUTES OFFICE 67384 A C KILPELA OUTPATIEN 4 4 VALERIE KRUSE T VISIT PSC 15 MINUTES OFFICE 80085 A C KILPELA OUTPATIEN 4 4 VALERIE KRUSE T VISIT PSC 15 MINUTES [facility] YULI - 4 4 [facility] OUTPATIEN INC T OFFICE 84124 A C KILPELA OUTPATIEN 4 4 VALERIE KRUSE T VISIT PSC 15 MINUTES OFFICE 48299 CENTRAL FELIX TRA OUTPATIEN 3 3 KEIRA T NEW 45 ORTHOPAED MINUTES ICS PLC OFFICE 80375 A C KILPELA OUTPATIEN 3 3 VALERIE KRUSE T VISIT PSC 15 MINUTES Emergency YENI Yuli GONZALEZ MD (ER) 3 18:49 3 19:39 [facility] OFFICE 99505 A C KILPELA OUTPATIEN 3 3 VALERIE KRUSE T VISIT PSC 15 MINUTES OFFICE 76472 A C KILPELA OUTPATIEN 3 3 VALERIE KRUSE T VISIT PSC 15 MINUTES OFFICE 60619 A C KILPELA OUTPATIEN 3 3 VALERIE KRUSE T VISIT PSC 15 MINUTES
--- OUTSIDE RECORDS SUMMARY | 2017-05-27 19:20 | External Medical Summary Rpt | CCD ---
Author Author , JOSEPH Luz JOSEPH Address Unknown Phone [email or web address] Care Team Providers Care Sap Project Manager Name Role Phone A Alfonso PADILLA MD PSC, A Unavailable Unavailable Alfonso PADILLA MD PSC [facility], Unavailable Unavailable [facility] [employer] Unavailable Unavailable [facility] [employer] Unavailable Unavailable [facility] [place] [facility], Unavailable Unavailable [facility] [place] [facility] SATURNINO TAI, Unavailable Unavailable [facility] [place] Unavailable Unavailable [facility] [place] [facility], Unavailable Unavailable [facility] [employer] [facility] [facility] Unavailable Unavailable INC, [facility] FELIX TRA, [facility] Unavailable Unavailable [facility] Un[facility] KILPELA JEA, KILPELA Unavailable Unavailable JEA ALESHIA B, ALESHIA B Unavailable Unavailable [facility], Unavailable Unavailable [facility], Unavailable Unavailable [facility] MARCELINA VARELA, Unavailable Unavailable MARCELINA NIX, HUNTER Unavailable Unavailable BOYD Purpose Continuity of Care Document - 08-30-2012 through 2016 Problems Code Diagnosis DOS Provider Status 65778 COMPLETE 04-16-2014 [facility] RUPTURE OF ORTHOPAEDIC ROTATOR S PLC CUFF 37852 PAIN IN 04-03-2014 [facility] JOINT, RADIOLOGY SHOULDER REGION 8404 ROTATOR 03-27-2014 A Alfonso PADILLA CUFF SPRAIN PSC AND STRAIN V700 ROUTINE 03-27-2014 Chriss PADILLA GENERAL PSC MEDICAL [email or web address] CARE FACL 8406 SUPRASPINAT 02-20-2014 [place] [facility] SPRAIN MEDICAL AND STRAIN IMAGING ASS 7820 DISTURBANCE 02-13-2014 Chriss PADILLA OF SKIN PSC SENSATION 7234 BRACHIAL 01-16-2014 [place] NEURITIS OR [facility] RADICULITIS NOS 7391 NONALLOPATH 01-16-2014 [place] IC LESION [facility]OP[facility]I OF CERVICAL C CENTE REGION NEC 98964 UNSPECIFIED 01-09-2014 Chriss PADILLA VIRAL PSC INFECTION IN CCE & UNS SITE 496 CHRONIC 01-09-2014 A Alfonso PADILLA AIRWAY PSC OBSTRUCTION NEC 72278 SPRAIN AND 12-28-2013 A Alfonso PADILLA STRAIN OF PSC UNSPECIFIED SITE OF FOOT 61724 PAIN IN 12-27-2013 [place] JOINT, MEDICAL ANKLE AND IMAGING ASS FOOT 42680 OTHER 12-27-2013 [place] SYMPTOMS MEDICAL REFERABLE IMAGING ASS TO ANKLE AND FOOT JOINT 87297 UNSPECIFIED 11-07-2013 [place] CEREBRAL MEDICAL ARTERY IMAGING ASS OCCLUSION W/INFARCT 436 ACUTE BUT 11-07-2013 [place] ILL-DEFINED MEDICAL IMAGING ASS CEREBROVASC ULAR DISEASE 57772 OSTEOARTHRO 11-07-2013 [place] S UNSPEC MEDICAL WHETHER IMAGING ASS GEN/LOC SHLDR REGION 71469 ALTERED 11-07-2013 [place] MENTAL MEDICAL STATUS IMAGING ASS 91178 SHORTNESS 11-07-2013 [place] OF BREATH MEDICAL IMAGING ASS E8889 UNSPECIFIED 11-07-2013 [place] FALL MEDICAL [facility] ASS 4660 ACUTE 10-31-2013 A Alfonso PADILLA BRONCHITIS PSC 4928 OTHER 10-31-2013 [place] EMPHYSEMA MEDICAL IMAGING ASS 10083 CHEST PAIN 10-31-2013 [facility] 5990 URINARY 09-24-2013 A Alfnoso PADILLA TRACT PSC INFECTION SITE NOT SPECIFIED 7881 DYSURIA 09-24-2013 [facility] 42457 CALCANEAL 06-29-2013 [place] SPUR MEDICAL IMAGING ASS 7295 PAIN IN 06-29-2013 [place] SOFT MEDICAL TISSUES OF IMAGING ASS LIMB 36550 UNSPECIFIED 06-29-2013 [facility] SITE OF ANKLE SPRAIN AND STRAIN 9599 INJURY 06-29-2013 [place] OTHER AND MEDICAL UNSPECIFIED IMAGING ASS UNSPECIFIED SITE 490 BRONCHITIS 03-28-2013 A Alfonso KAUR MD PSC SPECIFIED ACUTE OR CHRONIC 64272 OTHER 03-06-2013 [facility] AFTER-CATAR NETWORK LTD ACT NOT OBSCURING VISION 3671 MYOPIA 03-06-2013 [facility] 15198 REGULAR 03-06-2013 [facility] ASTIGMATISM NETWORK LTD 4619 ACUTE 08-30-2012 A Alfonso PADILLA SINUSITISMD PSC UNSPECIFIED Procedures Procedure DOS Code Location Performer Comment ARTHROSCO 60981 [facility] PY 4 [place] BOY[place] SHOULDER ORTHOPAED ROTATOR ICS PLC CUFF REPAIR RADIOLOGI 10409 [facility] [place] [facility] EXAM 4 RADIOLOGY SHA CHEST 2 VIEWS FRONTAL&L ATERAL MRI ANY 35793 [place] SATURNINO JT UPPER 4 MEDICAL TAI EXTREMITY IMAGING W/O ASS CONTRAST MATRL CHIROPRAC 42153 ERIN EDMUND TIC 4 SEB MANIPULAT CHIROPRAC JR TX TIC CENTE SPINAL 1-2 REGIONS INJECTION J1030 A Alfonso KILPELA 4 VALERIE KRUSE METHYLPRE PSC DNISOLONE ACETATE 40 MG THERAPEUT 03691 A Alfonso LIMONPELA IC 4 VALERIE KRUSE PROPHYLAC PSC TIC/DX INJECTION SUBQ/IM INJ J0702 A Alfonso QUEEN BETAMETHA 4 VALERIE KRUSE SONYinka PSC ACETATE & PHOSPHATE 3 MG RADEX 52992 [place] SATURNINO ANKLE 4 MEDICAL TAI COMPLETE IMAGING MINIMUM 3 ASS VIEWS DUPLEX 49390 [place] SATURNINO SCAN 4 MEDICAL TAI EXTRACRAN IMAGING [place] [address] [place] SATURN[place] HEAD/BRAI 4 MEDICAL TAI N W/O IMAGING CONTRAST ASS MATERIAL RADIOLOGI 08619 [place] SATURNINO C 4 MEDICAL TAI EXAMINATI IMAGING ON CHEST ASS SINGLE VIEW FRONTAL RADEX 58506 [place] SATURNINO SHOULDER 4 MEDICAL TAI COMPLETE IMAGING MINIMUM 2 ASS VIEWS RADIOLOGI 54074 [facility] ROLDAN C EXAM 4 [facility] CHEST 2 INC INC VIEWS FRONTAL&L ATERAL CULTURE 76824 [facility] BACTERIAL 4 DIAGNOSTI DIAGNOSTI CS CS QUANTTATI VE COLONY COUNT URINE CULTURE 87420 [facility] BCT 4 DIAGNOSTI DIAGNOSTI ISOL&PRSM CS CS PTV ID ISOLATE EA URINE URINLS 80759 A C BRET DIP 4 VALERIE KRUSE STICK/TAB PSC LET REAGNT NON-AUTO MICRSCPY MRI ANY 16674 [facility]ELIX TRA JT LOWER 4 [place] EXTREM ORTHOPAED W/O ICS PLC CONTRAST MATRL RADEX 44756 [place] SATURN[place] ANKLE 3 MEDICAL TAI COMPLETE IMAGING MINIMUM 3 ASS VIEWS RADEX 15866 [place] SATURN[place] FOOT 3 MEDICAL TAI COMPLETE IMAGING MINIMUM 3 ASS VIEWS RADIOLOGI 61331 [facility] SATURN[facility] C 3 MEDICAL TAI EXAMINATI IMAGING ON TIBIA ASS & FIBULA 2 VIEWS CRTCHS E0114 [facility] UNDARM 3 OTH THAN WOOD PAIR PAD TIP&HNDGR IP INJECTION J0696 A C KILPELA 3 VALERIE KRUSE CEFTRIAXO PSC NE SODIUM PER 250 MG INJ J0702 A C KILPELA BETAMETHA 3 VALERIE KRUSE SONE PSC ACETATE & PHOSPHATE 3 MG INJECTION J1030 A C KILPELA 3 VALERIE KRUSE METHYLPRE PSC DNISOLONE ACETATE 40 MG THERAPEUT 78165 A C KILPELA IC 3 VALERIE KRUSE PROPHYLAC PSC TIC/DX INJECTION SUBQ/IM THERAPEUT 94035 A C KILPEDEE IC 3 VALERIE KRUSE PROPHYLAC PSC TIC/DX INJECTION SUBQ/IM INJ J2930 A C KILPELA METHYLPRD 3 VALERIE KRUSE NISOLONE PSC SODIUM SUCCNAT TO 125 MG OPHTH 56477 [facility] 3 NETWORK XM&EVAL LTD INTERMEDI ATE ESTAB PT Encounters Encounter Start End Date Code Location Performer Type Date OFFICE 13596 A C KILPELA OUTPATIEN 4 4 VALERIE KRUSE T VISIT PSC 15 MINUTES OFFICE 56013 [facility] OUTPATIEN 4 4 KEIRA NIX T VISIT ORTHOPAED 15 ICS PLC MINUTES OFFICE 99945 A C KILPELA OUTPATIEN 4 4 VALERIE KRUSE T VISIT PSC 15 MINUTES OFFICE 04984 A C KILPELA OUTPATIEN 4 4 VALERIE KRUSE T VISIT PSC 15 MINUTES OFFICE 14262 A C KILPELA OUTPATIEN 4 4 VALERIE KRUSE T VISIT PSC 15 MINUTES OFFICE 85402 A C KILPELA OUTPATIEN 4 4 VALERIE KRUSE T VISIT PSC 15 MINUTES OFFICE 99664 A C KILPELA OUTPATIEN 4 4 VALERIE KRUSE T VISIT PSC 15 MINUTES [facility] - 4 4 [facility] T OFFICE 96212 A C KILPELA OUTPATIEN 4 4 VALERIE KRUSE T VISIT PSC 15 MINUTES OFFICE 39722 [facility] FELIX TRA OUTPATIEN 3 3 [place] T NEW 45 ORTHOPAED MINUTES ICS PLC OFFICE 56344 A C KILPELA OUTPATIEN 3 3 VALERIE KRUSE T VISIT PSC 15 MINUTES OFFICE 39901 A C KILPELA OUTPATIEN 3 3 VALERIE KRUSE T VISIT PSC 15 MINUTES OFFICE 36269 A C KILPELA OUTPATIEN 3 3 VALERIE KRUSE T VISIT PSC 15 MINUTES OFFICE 25960 A C KILPELA OUTPATIEN 3 3 VALERIE KRUSE T VISIT PSC 15 MINUTES
--- OUTSIDE RECORDS SUMMARY | 2017-05-27 19:20 | External Medical Summary Rpt | CCD ---
Author Author , JOSEPH RUIZ Address Unknown Phone [email or web address] Immunization Name Date Rout CVX Reac Dose Comm Prov Is Faci e tion ent ider Refu lity Give sed n PPV2 10-1 33 999 Hist D203 No D203 3 7-20 oric 45 45 16 al Info rmat ion - Sour ce Unsp ecif ied Zost 10-1 121 999 Hist D203 No D203 er 7-20 oric 45 45 16 al Info rmat ion - Sour ce Unsp ecif ied
--- OUTSIDE RECORDS SUMMARY | 2017-05-27 19:20 | External Medical Summary Rpt ---
Author Author JOSEPH Karl, JOSEPH [employer] Address Unknown Phone Unavailable Results Urea nitrogen [Mass/volume] in Serum or Plasma Observa Value Referen Units Interpr Notes Date tion ce etation Range Urea 7 - 18 mg/dL Normal No May 13 nitrogen informati 2016 [Mass/vol on in 12:23 PM ume] in source Serum or data Plasma CREATININE Observa Value Referen Units Interpr Notes Date tion ce etation Range Creatinin 0.55 - mg/dL Normal No May 13 e 1.02 informati 2016 [Mass/vol on in 12:23 PM ume] in source Serum or data Plasma Estimated 59- ML/MIN No REFERENCE May 13 informati RANGE: 2017 glomerula on in >60 12:23 PM r source ML/MIN/1. filtratio data 73 SQUARE n rate METERSIf (GF this patient is -A merican, then multiply theresult by 1.210. CBC with Ordered Manual Differential panel in Blood Observa Value Referen Units Interpr Notes Date tion ce etation Range Lymphocyt 0 - 5 % Normal No Feb 15 es informati 2016 1:36 Variant/1 on in PM 00 source leukocyte data s in Blood by Manual count Basophils 0 - 0.2 K/MM3 Normal No Feb 15 informati 2016 1:36 [#/volume on in PM ] in source Blood by data Automated count Neutrophi 0 - 8 % Normal No Feb 15 ls.band informati 2016 1:36 form/100 on in PM leukocyte source s in data Blood by Automated count Basophils 0 - 1 % Normal No Feb 15 informati 2016 1:36 leukocyte on in PM s in source Blood by data Automated count Basophils 0.1 - 2.0 % Normal No Feb 15 informati 2016 1:36 leukocyte on in PM s in source Blood by data Automated count Eosinophi 0.0 - 0.4 K/mm3 Normal No Feb 15 ls informati 2016 1:36 [#/volume on in PM ] in source Blood by data Automated count Eosinophi 0.1 - % Normal No Feb 15 ls/100 12.0 informati 2016 1:36 leukocyte on in PM s in source Blood by data Automated count Granulocy 1.8 - 7.8 K/mm3 Normal No Feb 15 jesse informati 2016 1:36 [#/volume on in PM ] in source Blood by data Automated count Granulocy 37.0 - % High No Feb 15 jesse/100 80.0 informati 2016 1:36 leukocyte on in PM s in source Blood by data Automated count Hematocri 37.0 - % Normal No Feb 15 t [Volume 47.0 informati 2016 1:36 on in PM Fraction] source of Blood data Hemoglobi 12.2 - g/dL Normal No Feb 15 n 16.2 informati 2016 1:36 [Mass/vol on in PM ume] in source Blood data Lymphocyt 0.7 - 4.5 K/mm3 Normal No Feb 15 es informati 2016 1:36 [#/volume on in PM ] in source Unspecifi data ed specimen by Automated count Lymphocyt 10 - 50.0 % Low No Feb 15 es informati 2016 1:36 [#/volume on in PM ] in source Unspecifi data ed specimen by Automated count LYMPH 11 10 - 50 % Normal No Feb 15 informa 2017 tion in 1:36 PM source data Erythrocy 27 - 31.2 pg Normal No Feb 15 te mean informati 2016 1:36 corpuscul on in PM ar source hemoglobi data n [Entitic mass] Erythrocy 31.8 - g/dl Low No Feb 15 te mean 35.4 informati 2016 1:36 corpuscul on in PM ar source hemoglobi data n concentra tion [Mass/vol ume] by Automated count Erythrocy 82.2 - fl Normal No Feb 15 te mean 97.8 informati 2016 1:36 corpuscul on in PM ar volume source [Entitic data volume] by Automated count Monocytes 0.1 - 1.0 K/mm3 Normal No Feb 15 informati 2016 1:36 [#/volume on in PM ] in source Blood by data Automated count Monocytes 1.7 - 9.3 % Normal No Feb 15 informati 2016 1:36 leukocyte on in PM s in source Blood by data Automated count Monocytes 2 - 9 % Normal No Feb 15 informati 2016 1:36 leukocyte on in PM s in source Blood by data Automated count Platelet 7.4 - fl Normal No Feb 15 mean 10.4 informati 2016 1:36 volume on in PM [Entitic source volume] data in Blood by Automated count Platele NORMAL No No No No Feb 15 ts informa informa informa informa 2016 [Presen tion in tion in tion in tion in 1:36 PM ce] in source source source source Blood data data data data by Light microsc opy Platelets 142 - 424 K/mm3 Normal No Feb 15 inform2016 1:36 [#/volume on in PM ] in source Blood data Neutrophi 42 - 76 % High No Feb 15 ls informati 2016 1:36 [#/volume on in PM ] in source Blood by data Automated count Erythrocy 4.2 - 5.4 M/mm3 Normal No Feb 15 jesse 2016 1:36 [#/volume on in PM ] in source Amniotic data fluid Erythrocy 11.5 - % Normal No Feb 15 te 17.5 informati 2016 1:36 distribut on in PM ion width source [Entitic data volume] by Automated count Cells No #CELLS No No Feb 15 Counted informati informati informati 2016 1:36 Total [#] on in on in on in PM in Blood source source source data data data Leukocyte 4.8 - K/MM3 Normal No Feb 15 s 10.8 informati 2016 1:36 [#/volume on in PM ] in source Blood data Basic metabolic panel in Blood Observa Value Referen Units Interpr Notes Date tion ce etation Range Urea 7 - 18 mg/dL Normal No Jan 20 nitrogen inform2016 [Mass/vol on in 12:40 PM ume] in source Serum or data Plasma Calcium 8.5 - mg/dL Normal No Jan 20 [Mass/vol 10.1 informati 2016 ume] in on in 12:40 PM Serum or source Plasma data Chloride 98 - 107 mmoL/L Normal No Jan 20 [Moles/vo informati 2016 lume] in on in 12:40 PM Serum or source Plasma data Carbon 21.0 - mmoL/L High No Jan 20 dioxide, 32.0 informati 2016 total on in 12:40 PM [Moles/vo source lume] in data Serum or Plasma Creatinin 0.55 - mg/dL Normal No Jan 20 e 1.02 informati 2016 [Mass/vol on in 12:40 PM ume] in source Serum or data Plasma Estimated 59- ML/MIN No REFERENCE Jan 20 informati RANGE: 2017 glomerula on in >60 12:40 PM r source ML/MIN/1. filtratio data 73 SQUARE n rate METERSIf (GF this patient is -A merican, then multiply theresult by 1.210. Glucose 74 - 106 mg/dL Normal No Jan 20 [Mass/vol informati 2016 ume] in on in 12:40 PM Serum or source Plasma data Potassium 3.5 - 5.1 mmoL/L Normal No Jan 20 inform2016 [Moles/vo on in 12:40 PM lume] in source Serum or data Plasma Sodium 136 - 145 mmoL/L Normal No Jan 20 [Moles/vo informati 2016 lume] in on in 12:40 PM Serum or source Plasma data CBC W Auto Differential panel in Blood Observa Value Referen Units Interpr Notes Date tion ce etation Range Basophils 0 - 0.2 K/MM3 Normal No Jan 20 inform2016 [#/volume on in 12:40 PM ] in source Blood by data Automated count Basophils 0.1 - 2.0 % Normal No Jan 20 / inform2016 leukocyte on in 12:40 PM s in source Blood by data Automated count Eosinophi 0.0 - 0.4 K/mm3 Normal No Jan 20 ls 2016 [#/volume on in 12:40 PM ] in source Blood by data Automated count Eosinophi 0.1 - % Normal No Jan 20 ls/100 12.0 inform2016 leukocyte on in 12:40 PM s in source Blood by data Automated count Granulocy 1.8 - 7.8 K/mm3 Normal No Jan 20 jesse inform2016 [#/volume on in 12:40 PM ] in source Blood by data Automated count Granulocy 37.0 - % Normal No Jan 20 jesse/100 80.0 informati 2016 leukocyte on in 12:40 PM s in source Blood by data Automated count Hematocri 37.0 - % Normal No Jan 20 t [Volume 47.0 informati 2016 on in 12:40 PM Fraction] source of Blood data Hemoglobi 12.2 - g/dL No No Jan 20 n 16.2 informati informati 2016 [Mass/vol on in on in 12:40 PM ume] in source source Blood data data Lymphocyt 0.7 - 4.5 K/mm3 Normal No Jan 20 es informati 2016 [#/volume on in 12:40 PM ] in source Unspecifi data ed specimen by Automated count Lymphocyt 10 - 50.0 % Normal No Jan 20 es inform2016 [#/volume on in 12:40 PM ] in source Unspecifi data ed specimen by Automated count Erythrocy 27 - 31.2 pg Normal No Jan 20 te mean inform2016 corpuscul on in 12:40 PM ar source hemoglobi data n [Entitic mass] Erythrocy 31.8 - g/dl Low No Jan 20 te mean 35.4 inform2016 corpuscul on in 12:40 PM ar source hemoglobi data n concentra tion [Mass/vol ume] by Automated count Erythrocy 82.2 - fl Normal No Jan 20 te mean 97.8 inform2016 corpuscul on in 12:40 PM ar volume source [Entitic data volume] by Automated count Monocytes 0.1 - 1.0 K/mm3 Normal No Jan 20 informati 2016 [#/volume on in 12:40 PM ] in source Blood by data Automated count Monocytes 1.7 - 9.3 % Normal No Jan 20 /100 inform2016 leukocyte on in 12:40 PM s in source Blood by data Automated count Platelet 7.4 - fl Normal No Jan 20 mean 10.4 inform2016 volume on in 12:40 PM [Entitic source volume] data in Blood by Automated count Platelets 142 - 424 K/mm3 Normal No Jan 20 inform2016 [#/volume on in 12:40 PM ] in source Blood data Erythrocy 4.2 - 5.4 M/mm3 Normal No Jan 20 jesse informati 2016 [#/volume on in 12:40 PM ] in source Amniotic data fluid Erythrocy 11.5 - % Normal No Jan 20 te 17.5 informati 2016 distribut on in 12:40 PM ion width source [Entitic data volume] by Automated count Leukocyte 4.8 - K/MM3 Normal No Jan 20 s 10.8 informati 2016 [#/volume on in 12:40 PM ] in source Blood data
--- OUTSIDE RECORDS SUMMARY | 2017-05-27 19:20 | External Medical Summary Rpt | CCD ---
Author Author , JOSEPH RUIZ Address Unknown Phone [email or web address] Immunization Name Date Rout CVX Reac Dose [...]
--- OUTSIDE RECORDS SUMMARY | 2017-05-27 19:20 | External Medical Summary Rpt ---
Author Author JOSEPH Karl, JOSEPH [employer] Address Unknown Phone Unavailable [...]
--- OUTSIDE RECORDS SUMMARY | 2017-05-27 19:20 | External Medical Summary Rpt | CCD ---
Author Author , JOSEPH Luz JOSEPH Address Unknown Phone [email or web address] Team Providers Care Mammal Control Agent Name Role Phone A Alfonso PADILLA MD PSC, A Unavailable Unavailable Alfonso PADILLA MD PSC [facility], Unavailable Unavailable [facility] [employer] Unavailable Unavailable [facility] [employer] Unavailable Unavailable [facility]available [facility] [place] [facility], Unavailable [facility]available [facility] [place] [facility]AI, Unavailable Unavailable [facility] [place] Unavailable Unavailable [facility] [place] [facility], Unavailable Unavailable [facility] [employer] [facility] Unavailable Unavailable INC, [...] 2016 Problems Code Diagnosis DOS Provider Status 34918 COMPLETE 04-16-2014 [facility] RUPTURE OF ORTHOPAEDIC ROTATOR S PLC CUFF 46297 PAIN IN 04-03-2014 [facility] JOINT, RADIOLOGY SHOULDER REGION 8404 ROTATOR [...] CHIROPRACTI OF [place]ERVICAL [place] 86783 UNSPECIFIED 01-09-2014 Chriss PADILLA VIRAL PSC INFECTION IN CCE & UNS SITE 496 CHRONIC 01-09-2014 A Alfonso PADILLA AIRWAY PSC OBSTRUCTION NEC 69497 SPRAIN AND 12-28-2013 A Alfonso PADILLA STRAIN OF PSC UNSPECIFIED SITE OF FOOT 10375 PAIN IN 12-27-2013 [place] JOINT, MEDICAL ANKLE AND IMAGING ASS FOOT 80260 OTHER 12-27-2013 [place] SYMPTOMS MEDICAL REFERABLE IMAGING ASS TO ANKLE AND FOOT JOINT 49138 UNSPECIFIED 11-07-2013 [place] CEREBRAL MEDICAL ARTERY IMAGING ASS OCCLUSION W/INFARCT 436 ACUTE BUT 11-07-2013 [place] ILL-DEFINED MEDICAL IMAGING ASS CEREBROVASC ULAR DISEASE 30253 OSTEOARTHRO 11-07-2013 [place] S UNSPEC MEDICAL WHETHER IMAGING ASS GEN/LOC SHLDR REGION 29773 ALTERED 11-07-2013 [place] MENTAL MEDICAL STATUS IMAGING ASS 14323 SHORTNESS 11-07-2013 [place] OF BREATH MEDICAL IMAGING ASS E8889 UNSPECIFIED 11-07-2013 [place] FALL MEDICAL IMAGING ASS 4660 ACUTE 10-31-2013 A Alfonso PADILLA BRONCHITIS PSC 4928 OTHER 10-31-2013 [place] EMPHYSEMA MEDICAL IMAGING ASS 05617 CHEST PAIN 10-31-2013 [facility] UNSPECIFIED [facility] 5990 URINARY 09-24-2013 A Alfonso PADILLA TRACT PSC INFECTION SITE NOT SPECIFIED 7881 DYSURIA 09-24-2013 [facility] 47210 CALCANEAL 06-29-2013 [place] SPUR MEDICAL IMAGING ASS 7295 PAIN IN 06-29-2013 [place] SOFT MEDICAL TISSUES OF IMAGING ASS LIMB 29825 UNSPECIFIED 06-29-2013 [facility] SITE OF ANKLE SPRAIN AND STRAIN 9599 INJURY 06-29-2013 [place] OTHER AND MEDICAL UNSPECIFIED IMAGING ASS UNSPECIFIED SITE 490 BRONCHITIS 03-28-2013 A Alfonso KAUR MD PSC SPECIFIED ACUTE OR CHRONIC 99204 OTHER 03-06-2013 [employer] AFTER-CATAR NETWORK LTD ACT NOT OBSCURING VISION 3671 MYOPIA 03-06-2013 [employer] NET[employer] 76029 REGULAR 03-06-2013 [employer] ASTIGMATISM NETWORK LTD 4619 ACUTE 08-30-2012 A Alfonso PADILLA SINUSITISMD PSC UNSPECIFIED Procedures Procedure DOS Code Location Performer Comment ARTHROSCO 97730 [facility] PY 4 [place] BOY[place] SHOULDER ORTHOPAED ROTATOR ICS PLC CUFF REPAIR RADIOLOGI 36962 [facility] [place] RADMANESH C EXAM 4 RADIOLOGY SHA CHEST 2 VIEWS FRONTAL&L ATERAL MRI ANY 33612 [place] SATURNINO JT UPPER 4 MEDICAL TAI EXTREMITY IMAGING W/O ASS CONTRAST MATRL CHIROPRAC 95336 ERIN EDMUND TIC 4 SEB MANIPULAT CHIROPRAC JR TX TIC CENTE SPINAL 1-2 REGIONS INJECTION J1030 A Alfonso KILPELA 4 VALERIE KRUSE METHYLPRE PSC DNISOLONE ACETATE 40 MG THERAPEUT 82312 A Alfonso LIMONPELA IC 4 VALERIE KRUSE PROPHYLAC PSC TIC/DX INJECTION SUBQ/IM INJ J0702 A Alfonso QUEEN BETAMETHA 4 VALERIE KRUSE SONYinka PSC ACETATE & PHOSPHATE 3 MG RADEX 91697 [place] SATURN[place] ANKLE 4 MEDICAL TAI COMPLETE IMAGING MINIMUM 3 ASS VIEWS DUPLEX 55806 [place] SATURN[place] SCAN 4 MEDICAL TAI EXTRACRAN IMAGING [place] [address] [place] SATURN[place] HEAD/BRAI 4 MEDICAL TAI N W/O IMAGING CONTRAST ASS MATERIAL RADIOLOGI 80544 [place] SATURN[place] C 4 MEDICAL TAI EXAMINATI IMAGING ON CHEST ASS SINGLE VIEW FRONTAL RADEX 41541 [place] SATURN[place] SHOULDER 4 MEDICAL TAI COMPLETE IMAGING MINIMUM 2 ASS VIEWS RADIOLOGI 09896 [facility] ROLDAN C EXAM 4 [facility] CHEST 2 INC INC VIEWS FRONTAL&L ATERAL CULTURE 50767 [facility] BACTERIAL 4 DIAGNOSTI DIAGNOSTI CS CS QUANTTATI VE COLONY COUNT URINE CULTURE 35293 [facility] BCT 4 DIAGNOSTI DIAGNOSTI ISOL&PRSM CS CS PTV ID ISOLATE EA URINE URINLS 45916 A C BRET DIP 4 VALERIE KRUSE STICK/TAB PSC LET REAGNT NON-AUTO MICRSCPY MRI ANY 96044 [facility] FELIX TRA JT LOWER 4 [place] EXTREM ORTHOPAED W/O ICS PLC CONTRAST MATRL RADEX 04145 [place] SATURN[place] ANKLE 3 MEDICAL TAI COMPLETE IMAGING MINIMUM 3 ASS VIEWS RADEX 14402 [place] SATURN[place] FOOT 3 MEDICAL TAI COMPLETE IMAGING MINIMUM 3 ASS VIEWS RADIOLOGI 01445 [facility] C 3 MEDICAL TAI EXAMINATI IMAGING [...] METHYLPRE PSC DNISOLONE ACETATE 40 MG THERAPEUT 27371 A C KILPELA IC 3 VALERIE KRUSE PROPHYLAC PSC TIC/DX INJECTION SUBQ/IM THERAPEUT 46609 A C KILPEDEE IC 3 VALERIE KRUSE PROPHYLAC PSC TIC/DX INJECTION SUBQ/IM INJ J2930 A C KILPELA METHYLPRD 3 VALERIE KRUSE NISOLONE PSC SODIUM SUCCNAT TO 125 MG OPHTH 91116 [facility] 3 NETWORK XM&EVAL LTD INTERMEDI ATE ESTAB PT Encounters Encounter Start End Date Code Location Performer Type Date OFFICE 79792 A C KILPELA OUTPATIEN 4 4 VALERIE KRUSE T VISIT PSC 15 MINUTES OFFICE 26809 [facility] OUTPATIEN 4 4 KEIRA NIX T VISIT ORTHOPAED 15 ICS PLC MINUTES OFFICE 96728 A C KILPELA OUTPATIEN 4 4 VALERIE KRUSE T VISIT PSC 15 MINUTES OFFICE 45534 A C KILPELA OUTPATIEN 4 4 VALERIE KRUSE T VISIT PSC 15 MINUTES OFFICE 46809 A C KILPELA OUTPATIEN 4 4 VALERIE KRUSE T VISIT PSC 15 MINUTES OFFICE 85679 A C KILPELA OUTPATIEN 4 4 VALERIE KRUSE T VISIT PSC 15 MINUTES OFFICE 67803 A C KILPELA OUTPATIEN 4 4 VALERIE KRUSE T VISIT PSC 15 MINUTES [facility] - 4 4 [facility] OUTPATIEN INC T OFFICE 94986 A C KILPELA OUTPATIEN 4 4 VALERIE KRUSE T VISIT PSC 15 MINUTES OFFICE 41403 [facility]ELIX TRA OUTPATIEN 3 3 [place] T NEW 45 ORTHOPAED MINUTES ICS PLC OFFICE 94673 A C KILPELA OUTPATIEN 3 3 VALERIE KRUSE T VISIT PSC 15 MINUTES OFFICE 94054 A C KILPELA OUTPATIEN 3 3 VALERIE KRUSE T VISIT PSC 15 MINUTES OFFICE 77599 A C KILPELA OUTPATIEN 3 3 VALERIE KRUSE T VISIT PSC 15 MINUTES OFFICE 26129 A C KILPELA OUTPATIEN 3 3 VALERIE KRUSE T VISIT PSC 15 MINUTES
--- OUTSIDE RECORDS SUMMARY | 2017-05-27 21:10 | External Medical Summary Rpt | CCD ---
Author Author , JOSPEH RUIZ Address Unknown Phone [email or web address] Care Team Providers Care Gift Basket Packer Name Role Phone Chriss PADILLA MD PSC, A Unavailable Unavailable Alfonso PADILLA MD PSC EDMUND SEB, Unavailable Unavailable EDMUND SEB [employer] Unavailable Unavailable [employer] Unavailable Unavailable CAYETANO GONZALEZ MD, Unavailable Unavailable CAYETANO GONZALEZ MD [facility] Unavailable Unavailable [facility], [facility], Unavailable Unavailable [facility] TAI, Unavailable Unavailable [facility] [place] Unavailable [facility], Unavailable Unavailable [facility] Unavailable Unavailable INC, [facility] FELIX TRA, FELIX TRA Unavailable Unavailable [facility], [facility] KILPELA JEA, KILPELA Unavailable Unavailable JEA ALESHIA B, ALESHIA B Unavailable Unavailable [facility], Unavailable Unavailable [facility], Unavailable Unavailable [facility] MARCELINA VARELA, Unavailable Unavailable MARCELINA NIX, HUNTER Unavailable Unavailable BOYD Purpose Continuity of Care Document - 08-30-2012 through 2016 Problems Code Diagnosis DOS Provider Status 24545 COMPLETE 04-16-2014 [facility] RUPTURE OF ORTHOPAEDIC ROTATOR S PLC CUFF 72316 PAIN IN 04-03-[address] [facility] JOINT, RADIOLOGY SHOULDER REGION 8404 ROTATOR 03-27-2014 Chriss PADILLA CUFF SPRAIN PSC AND STRAIN V700 ROUTINE 03-27-2014 Chriss PADILLA GENERAL PSC MEDICAL [email or web address] CARE FACL 8406 SUPRASPINAT 02-20-2014 [facility] US SPRAIN MEDICAL AND STRAIN IMAGING ASS 7820 DISTURBANCE 02-13-2014 Chriss PADILLA OF SKIN PSC SENSATION 7234 BRACHIAL 01-16-2014 [place] NEURITIS OR [facility] RADICULITIS NOS 7391 NONALLOPATH 01-16-2014 [place] IC LESION CHIROPRACTI OF CERVICAL C CENTE REGION NEC 96547 UNSPECIFIED 01-09-2014 A Alfonso PADILLA VIRAL PSC INFECTION IN CCE & UNS SITE 496 CHRONIC 01-09-2014 A Alfonso PADILLA AIRWAY PSC OBSTRUCTION NEC 12277 SPRAIN AND 12-28-2013 A Alfonso PADILLA STRAIN OF PSC UNSPECIFIED SITE OF FOOT 36614 PAIN IN 12-27-2013 [facility] JOINT, MEDICAL ANKLE AND IMAGING ASS FOOT 42541 OTHER 12-27-2013 [facility] SYMPTOMS MEDICAL REFERABLE IMAGING ASS TO ANKLE AND FOOT JOINT 21754 UNSPECIFIED 11-07-2013 [facility] CEREBRAL MEDICAL ARTERY [facility]ING ASS OCCLUSION W/INFARCT 436 ACUTE BUT 11-07-2013 [facility] ILL-DEFINED MEDICAL IMAGING ASS CEREBROVASC ULAR DISEASE 01959 OSTEOARTHRO 11-07-2013 [facility] S UNSPEC MEDICAL WHETHER IMAGING ASS GEN/LOC SHLDR REGION 05428 ALTERED 11-07-2013 [facility] MENTAL MEDICAL STATUS [facility] 68248 SHORTNESS 11-07-2013 [facility] OF BREATH MEDICAL IMAGING ASS E8889 UNSPECIFIED 11-07-2013 [facility] FALL MEDICAL [facility] 4660 ACUTE 10-31-2013 A Alfonso PADILLA BRONCHITIS PSC 4928 OTHER 10-31-2013 [facility] EMPHYSEMA [facility]ICAL [facility] 44719 CHEST PAIN 10-31-2013 [facility]PECIFIED [facility] 5990 URINARY 09-24-2013 A Alfonso PADILLA TRACT PSC INFECTION SITE NOT SPECIFIED 7881 DYSURIA 09-24-2013 [facility] 89136 CALCANEAL 06-29-2013 [facility] SPUR MEDICAL IM[facility]ING ASS 7295 PAIN IN 06-29-2013 [facility] SOFT MEDICAL TISSUES OF IMAGING ASS LIMB 845.00 845.00 06-29-[address] [facility] [address] UNSPECIFIED 06-29-2013 [facility] SITE OF ANKLE SPRAIN AND STRAIN 9599 INJURY 06-29-2013 [facility] OTHER AND MEDICAL UNSPECIFIED IMAGING ASS UNSPECIFIED SITE E849.0 E849.0 06-29-2013 Y[facility] ACCIDENT IN [facility] E885.9 E885.9 FALL 06-29-2013 Yuli FROM [facility] SLIPPING, Hospital TRIPPING, OR STUMBLING NEC 490 BRONCHITIS 03-28-2013 Chriss KAUR MD PSC SPECIFIED ACUTE OR CHRONIC 88309 OTHER 03-06-2013 [facility] [facility] ACT NOT OBSCURING VISION 3671 MYOPIA 03-06-2013 [facility] 58627 REGULAR 03-06-2013 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 D64.9 ANEMIA, UNSPECIFIED G45.9 TRANSIENT CEREBRAL ISCHEMIC ATTACK, UNSPECIFIED J18.9 PNEUMONIA, UNSPECIFIED ORGANISM K29.70 GASTRITIS, UNSPECIFIED , WITHOUT BLEEDING M54.12 RADICULOPAT HY, CERVICAL REGION M54.5 LOW BACK PAIN S62.509A FRACTURE OF UNSP PHALANX OF UNSP THUMB, INIT FOR CLOS FX S93.401A SPRAIN OF UNSPECIFIED LIGAMENT OF RIGHT ANKLE, INIT ENCNTR S93.402A SPRAIN OF UNSPECIFIED LIGAMENT OF LEFT ANKLE, INIT ENCNTR T88.7XXA UNSP ADVERSE EFFECT OF DRUG OR MEDICAMENT, INIT ENCNTR Z72.0 TOBACCO USE Allergies, Adverse Reactions, Alerts Type Drug Allergy [...] Order Detail nces retati t Range on Arterial blood gas (05-27-2017 17:02) Arteria = 34.1 23-27 complet l blood 017 MMOL/L ed carbon 17:02 dioxide , total lin Arteria = 51.7 90-100 complet l blood 017 % ed oxygen 17:02 saturat ion calcula Arteria = 27.0 80-100 complet l whole 017 MMHG ed blood 17:02 PO2 at POC Comment: CRITICAL RESULTS Comment: RESULTS CALLED TO: RESULTS TAKEN TO DR DONIS Comment: 05/27/171713 Lucho Gonzalezsa Arteria = 7.41 7.35-7. complet l blood 017 MMOL/L 45 ed pH 17:02 measure ment Arteria = 52.4 35.0-45 complet l blood 017 MMHG .0 ed 17:02 partial pressur e of carbo Comment: CRITICAL RESULTS Comment: RESULTS CALLED TO: RESULTS TAKEN TO DR DONIS Comment: 05/27/171713 Lucho Gonzalezsa Arteria = 30%, complet l blood 017 2.5 LPM ed total 17:02 NC oxygen content kel Arteria = 32.5 22.0-26 complet l blood 017 MMOL/L .0 ed 17:02 [place] ju[place] c measure ment ( Sina's ACCEPTA complet test 017 BLE ed before 17:02 ACCEPTA arteria BLE L l blood gas Arteria = 7.8 -2.4-+2 complet l blood 017 MMOL/L .3 ed base 17:02 excess determi nation Gas panel in Arterial blood (05-27-2017 17:02) Arteria ACCEPTA complet l 017 BLE ed patency 17:02 Wrist artery --pre arteria l punctur e Comprehensive metabolic panel (05-27-2017 16:31) Serum = 0.7 1.1-1.8 complet or 017 ed plasma 16:31 albumin /globul in mass ra Serum = 3.1 3.4-5.0 complet or 017 gm/dL ed plasma 16:31 albumin measure ment (mas Serum = 129 46-116 complet or 017 U/L ed plasma 16:31 alkalin e phospha tase lin Serum = 0.6 0.2-1.0 complet or 017 mg/dL ed plasma 16:31 total bilirub in measure m Serum = 9 7-18 complet or 017 mg/dL ed plasma 16:31 urea nitroge n measure men Serum = 9.3 8.5-10. complet or 017 mg/dL 1 ed plasma 16:31 calcium measure ment (mas Serum = 101 98-107 complet or 017 mmoL/L ed plasma 16:31 chlorid e measure ment (mo Carbon = 32 21.0-32 complet dioxide 017 mmoL/L .0 ed 16:31 measure ment Serum = 0.8 0.55-1. complet or 017 mg/dL 02 ed plasma 16:31 creatin ine measure ment ( Estimat = 54 50-200 complet ion of 017 ML/MIN ed creatin 16:31 ine renal clearan ce Estimat = 71 59- complet ed 017 ML/MIN ed glomeru 16:31 lar filtrat ion rate (GF Comment: REFERENCE RANGE: >60 ML/MIN/1.73 SQUARE METERS Comment: If this patient is -Malaysian, then multiply the Comment: result by 1.210. Serum = 4.2 1.3-3.2 complet globuli 017 gm/dL ed n 16:31 measure ment (mass/v olume) Serum = 110 74-106 complet or 017 mg/dL ed plasma 16:31 glucose measure ment (mas Serum = 3.3 3.5-5.1 complet potassi 017 mmoL/L ed um 16:31 measure ment Serum = 143 136-145 complet sodium 017 mmoL/L ed measure 16:31 ment Serum = 20 15-37 complet or 017 U/L ed plasma 16:31 asparta te aminotr ansfera ALT = 17 12-78 complet (SGPT) 017 U/L ed ser/karthik 16:31 s Protein = 7.3 6.4-8.2 complet total 017 gm/dL ed ser/karthik 16:31 s Blood lactic acid measurement (moles/vol (05-27-2017 16:31) Blood = 1.6 0.4-2.0 complet lactic 017 mmol/L ed acid 16:31 measure ment (moles/ vol CBC w auto diff (05-27-2017 16:31) Blood = 9.0 4.8-10. complet leukocy 017 K/MM3 8 ed jesse 16:31 count (number /volume ) Automat = 18.1 11.5-17 complet ed 017 % .5 ed erythro 16:31 cyte distrib ution width Red = 3.37 4.2-5.4 complet blood 017 M/mm3 ed cell 16:31 count Blood = 86 142-424 complet platele 017 K/mm3 ed t count 16:31 Automat = 9.3 7.4-10. complet ed 017 fl 4 ed blood 16:31 platele t mean volume lin [place] % = 8.4 % 1.7-9.3 complet 017 ed 16:31 Absolut = 0.8 0.1-1.0 complet e 017 K/mm3 ed monocyt 16:31 e count Automat = 98.2 82.2-97 complet ed 017 fl .8 ed erythro 16:31 cyte mean corpusc ular v Automat = 31.4 31.8-35 complet ed 017 g/dl .4 ed erythro 16:31 cyte mean corpusc ular h Mean = 30.8 27-31.2 complet corpusc 017 pg ed ular 16:31 hemoglo bin (MCH) determ Lymphoc = 16.2 10-50.0 complet yte 017 % ed count, 16:31 blood, automat ed Absolut = 1.5 0.7-4.5 complet e 017 K/mm3 ed lymphoc 16:31 yte count Blood = 10.4 12.2-16 complet hemoglo 017 g/dL .2 ed bin 16:31 measure ment (mass/v olum Blood = 33.0 37.0-47 complet hematoc 017 % .0 ed rit 16:31 (volume fractio n) Granulo = 74.1 37.0-80 complet cyte 017 % .0 ed percent 16:31 age Blood = 6.7 1.8-7.8 complet granulo 017 K/mm3 ed cytes 16:31 automat ed count (numb Automat = 1.0 % 0.1-12. complet ed 017 0 ed blood 16:31 eosinop hils/10 0 leukocy t Automat = 0.1 0.0-0.4 complet ed 017 K/mm3 ed blood 16:31 eosinop hil count Baso % = 0.3 % 0.1-2.0 complet 017 ed 16:31 Automat = 0.0 0-0.2 complet ed 017 K/MM3 ed blood 16:31 basophi l count (count/ vo CREATININE (05-13-2017 12:23) Estimat = 71 59- complet ed 017 ML/MIN ed glomeru 12:23 lar filtrat ion rate (GF Comment: REFERENCE RANGE: >60 ML/MIN/1.73 SQUARE METERS Comment: If this patient is -Malaysian, then multiply the Comment: result by 1.210. Serum = 0.8 0.55-1. complet or 017 mg/dL 02 ed plasma 12:23 creatin ine measure ment ( Serum or plasma urea nitrogen measuremen (05-13-2017 12:23) Serum = 10 7-18 complet or 017 mg/dL [...] Procedure DOS Code Location Performer Comment ARTHROSCO 69395 [facility] [place] PY 4 [place] BOYD SHOULDER ORTHOPAED ROTATOR ICS PLC CUFF REPAIR RADIOLOGI 04300 CNTR[place] RADMANESH C EXAM 4 RADIOLOGY SHA CHEST 2 VIEWS FRONTAL&L ATERAL MRI ANY 44645 [facility] SATURNINO JT UPPER 4 MEDICAL TAI EXTREMITY IMAGING W/O ASS CONTRAST MATRL CHIROPRAC 15366 ERIN SHAFFER TIC 4 SEB MANIPULAT CHIROPRAC JR TX TIC CENTE SPINAL 1-2 REGIONS THERAPEUT 19853 A C ASHLYPELA IC 4 VALERIE KRUSE PROPHYLAC PSC TIC/DX INJECTION SUBQ/IM INJ J0702 A C ASHLYPELA BETAMETHA 4 VALERIE KRUSE SONE PSC ACETATE & PHOSPHATE 3 MG INJECTION J1030 A C KILPELA 4 VALERIE KRUSE METHYLPRE PSC DNISOLONE ACETATE 40 MG RADEX 58613 [facility] SATURNINO ANKLE 4 MEDICAL TAI COMPLETE IMAGING MINIMUM 3 ASS VIEWS DUPLEX 85816 [facility] SATURNINO SCAN 4 MEDICAL TAI EXTRACRAN IMAGING IAL ART ASS COMPL BI STUDY RADEX 93079 [facility] SATURNINO SHOULDER 4 MEDICAL TAI COMPLETE IMAGING MINIM[place] [address] [place] [address] [facility] SATURNINO HEAD/BRAI 4 MEDICAL TAI N W/O IMAGING CONTRAST ASS MATERIAL RADIOLOGI 53045 [facility] SATURNINO C 4 MEDICAL TAI EXAMINATI IMAGING ON CHEST ASS SING[place] FRONTAL RADIOLOGI 66323 [facility] ROLDAN C EXAM 4 MEM HOS[facility]OS[facility] CHEST 2 INC INC VIEWS FRONTAL&L ATERAL CULTURE 77479 [facility] BACTERIAL 4 DIAGNOSTI DIAGNOSTI CS CS QUANTTATI VE COLONY COUNT URINE CULTURE 02219 [facility] BCT 4 DIAGNOSTI DIAGNOSTI ISOL&PRSM CS CS PTV ID ISOLATE EA URINE URINLS 97850 A C BRET DIP 4 VALERIE KRUSE STICK/TAB PSC LET REAGNT NON-AUTO MICRSCPY [place] ANY 31885 CENTRAL FELIX TRA JT LOWER 4 [place] EXTREM ORTHOPAED W/O ICS PLC CONTRAST MATRL RADEX 65593 [facility] SATURNINO ANKLE 3 MEDICAL TAI COMPLETE IMAGING MINIMUM 3 ASS VIEWS RADEX 16899 [facility] SATURNINO FOOT 3 MEDICAL TAI COMPLETE IMAGING MINIMUM 3 ASS VIEWS CRTCHS E0114 [facility] UNDARM 3 OTH THAN WOOD PAIR PAD TIP&HNDGR IP RADIOLOGI 91051 SENAIT [place] 3 MEDICAL TAI EXAMINATI IMAGING ON TIBIA ASS & FIBULA 2 VIEWS INJECTION J0696 A C KILPELA 3 VALERIE KRUSE CEFTRIAXO PSC NE SODIUM PER 250 MG THERAPEUT 62129 A C KILPELA IC 3 VALERIE KRUSE PROPHYLAC PSC TIC/DX INJECTION SUBQ/IM INJ J0702 A C KILPELA BETAMETHA 3 VALERIE KRUSE SONE PSC ACETATE & PHOSPHATE 3 MG INJECTION J1030 A C KILPELA 3 VALERIE KRUSE METHYLPRE PSC DNISOLONE ACETATE 40 MG INJ J2930 A C KILPEDEE METHYLPRD 3 VALERIE KRUSE NISOLONE PSC SODIUM SUCCNAT TO 125 MG THERAPEUT 71964 A C KILPELA IC 3 VALERIE KRUSE PROPHYLAC PSC TIC/DX INJECTION SUBQ/IM OPHTH 07950 [facility] 3 NETWORK XM&EVAL LTD INTERMEDI ATE ESTAB PT Encounters Encounter Start End Date Code Location Performer Type Date OFFICE 30327 A C KILPELA OUTPATIEN 4 4 VALERIE KRUSE T VISIT PSC 15 MINUTES OFFICE 02994 CENTRAL HUNTER OUTPATIEN 4 4 KEIRA NIX T VISIT ORTHOPAED 15 ICS PLC MINUTES OFFICE 69111 A C KILPELA OUTPATIEN 4 4 VALERIE KRUSE T VISIT PSC 15 MINUTES OFFICE 59521 A C KILPEDEE OUTPATIEN 4 4 VALERIE KRUSE T VISIT PSC 15 MINUTES OFFICE 35604 A C KILPELA OUTPATIEN 4 4 VALERIE KRUSE T VISIT PSC 15 MINUTES OFFICE 44863 A C KILPELA OUTPATIEN 4 4 VALERIE KRUSE T VISIT PSC 15 MINUTES [facility] YULI - 4 4 MEM HOS[facility] OUTPATIEN INC T OFFICE 22537 A C KILPELA OUTPATIEN 4 4 VALERIE KRUSE T VISIT PSC 15 MINUTES OFFICE 42132 A C KILPELA OUTPATIEN 4 4 VALERIE KRUSE T VISIT PSC 15 MINUTES OFFICE 13974 CENTRAL FELIX TRA OUTPATIEN 3 3 [place] T NEW 45 ORTHOPAED MINUTES ICS PLC OFFICE 53155 A C KILPELA OUTPATIEN 3 3 VALERIE Hernandez VISIT PSC 15 MINUTES Emergency YENI Yuli GONZALEZ MD (ER) 3 18:49 3 19:39 [facility] OFFICE 53349 A C KILPELA OUTPATIEN 3 3 VALERIE KRUSE T VISIT PSC 15 MINUTES OFFICE 27671 A C KILPELA OUTPATIEN 3 3 VALERIE KRUSE T VISIT PSC 15 MINUTES OFFICE 03046 A C KILPELA OUTPATIEN 3 3 VALERIE KRUSE T VISIT PSC 15 MINUTES
--- OUTSIDE RECORDS SUMMARY | 2017-05-27 21:10 | External Medical Summary Rpt | CCD ---
Author Author , JOSEPH RUIZ Address Unknown Phone [email or web address] Care Team Providers Care Case Finisher Name Role Phone Chriss PADILLA MD PSC, A Unavailable Unavailable Alfonso PADILLA MD PSC EDMUND SEB, Unavailable Unavailable EDMUND SEB [facility] [employer] Unavailable Unavailable [facility] [employer] [employer] Unavailable Unavailable CAYETANO GONZALEZ MD, Unavailable Unavailable CAYETANO GONZALEZ MD [facility] Unavailable Unavailable [facility], [facility], Unavailable Unavailable [facility] SATURNINO TAI, Unavailable Unavailable SATURN[facility] TAI [place] [facility], Unavailable Unavailable [facility] Unavailable Unavailable INC, [facility] F[facility], [facility] Unavailable Unavailable [facility] Unavailable [facility]available [facility], [facility] KILPELA JEA, KILPELA Unavailable Unavailable JEA ALESHIA B, ALESIHA B Unavailable Unavailable [facility], Unavailable Unavailable [facility], Unavailable Unavailable [facility] MARCELINA VARELA, Unavailable Unavailable MARCELINA NIX, HUNTER Unavailable Unavailable BOYD Purpose Continuity of Care Document - 08-30-2012 through 2016 Problems Code Diagnosis DOS Provider Status 23181 COMPLETE 04-16-2014 [facility] RUPTURE OF ORTHOPAEDIC ROTATOR S PLC CUFF 45815 PAIN IN 04-03-2014 [facility] JOINT, RADIOLOGY SHOULDER REGION 8404 ROTATOR 03-27-2014 Chriss PADILLA CUFF SPRAIN PSC AND STRAIN V700 ROUTINE 03-27-2014 Chriss PADILLA GENERAL PSC MEDICAL [email or web address]@[email or web address] CARE FACL 8406 SUPRASPINAT 02-20-2014 [place] US SPRAIN MEDICAL AND STRAIN IMAGING ASS 7820 DISTURBANCE 02-13-2014 Chriss PADILLA OF SKIN PSC SENSATION 7234 BRACHIAL 01-16-2014 [place] NEURITIS OR CHIROPRACTI C CENTE RADICULITIS NOS 7391 NONALLOPATH 01-16-2014 [place] IC LESION CHIROPRACTI OF CERVICAL C CENTE REGION NEC 86034 UNSPECIFIED 01-09-2014 A Alfonso PADILLA VIRAL PSC INFECTION IN CCE & UNS SITE 496 CHRONIC 01-09-2014 A Alfonso PADILLA AIRWAY PSC OBSTRUCTION NEC 55424 SPRAIN AND 12-28-2013 A Alfonso PADILLA STRAIN OF PSC UNSPECIFIED SITE OF FOOT 11000 PAIN IN 12-27-2013 [place] JOINT, MEDICAL ANKLE AND IMAGING ASS FOOT 17300 OTHER 12-27-2013 [place] SYMPTOMS MEDICAL REFERABLE IMAGING ASS TO ANKLE AND FOOT JOINT 84368 UNSPECIFIED 11-07-2013 [place] CEREBRAL MEDICAL ARTERY IMAGING ASS OCCLUSION W/INFARCT 436 ACUTE BUT 11-07-2013 [place] ILL-DEFINED MEDICAL IMAGING ASS CEREBROVASC ULAR DISEASE 69917 OSTEOARTHRO 11-07-2013 [place] S UNSPEC MEDICAL WHETHER IMAGING ASS GEN/LOC SHLDR REGION 39384 ALTERED 11-07-2013 [facility] MENTAL MEDICAL STATUS [facility] 78663 SHORTNESS 11-07-2013 [place] OF BREATH MEDICAL IMAGING ASS E8889 UNSPECIFIED 11-07-2013 [facility] FALL MEDICAL IMAGING ASS 4660 ACUTE 10-31-2013 A Alfonso PADILLA BRONCHITIS PSC 4928 OTHER 10-31-2013 [place] EMPHYSEMA MEDICAL IMAGING ASS 55967 CHEST PAIN 10-31-2013 [facility] UNSPECIFIED [facility] 5990 URINARY 09-24-2013 A Alfonso PADILLA TRACT PSC INFECTION SITE NOT SPECIFIED 7881 DYSURIA 09-24-2013 [facility] 10931 CALCANEAL 06-29-2013 [place] SPUR MEDICAL IMAGING ASS 7295 PAIN IN 06-29-2013 [place] SOFT MEDICAL TISSUES OF IMAGING ASS LIMB 845.00 845.00 06-29-2013 [facility] SPRAIN OF [facility] 87883 UNSPECIFIED 06-29-2013 [facility] SITE OF ANKLE SPRAIN AND STRAIN 9599 INJURY 06-29-2013 [place] OTHER AND MEDICAL UNSPECIFIED IMAGING ASS UNSPECIFIED SITE E849.0 E849.0 06-29-2013 Yuli ACCIDENT IN [facility] E885.9 E885.9 FALL 06-29-2013 Yuli FROM [facility] SLIPPING, Hospital TRIPPING, OR STUMBLING NEC 490 BRONCHITIS 03-28-2013 Chriss KAUR MD PSC SPECIFIED ACUTE OR CHRONIC 72924 OTHER 03-06-2013 [employer] LTD ACT NOT OBSCURING VISION 3671 MYOPIA 03-06-2013 [facility] 91191 REGULAR 03-06-2013 [facility] 4619 ACUTE 08-30-2012 [...] SQUARE METERS Comment: If this patient is -Mongolian, then multiply the Comment: result by 1.210. [...] blood 16:31 platele t mean volume lin [place] % = 8.4 % 1.7-9.3 complet 017 [...] SQUARE METERS Comment: If this patient is -Mongolian, then multiply the Comment: result by 1.210. [...] Procedure DOS Code Location Performer Comment ARTHROSCO 98197 [place] [place]TER PY 4 [place] BOY[place] SHOULDER ORTHOPAED ROTATOR ICS PLC CUFF REPAIR RADIOLOGI 30617 [place] RADMANESH C EXAM 4 RADIOLOGY SHA CHEST 2 VIEWS FRONTAL&L [place]TERAL [place] ANY 89991 [place] SATURNINO JT UPPER 4 MEDICAL TAI EXTREMITY IMAGING W/O ASS CONTRAST MATRL CHIROPRAC 38727 ERIN SHAFFER TIC 4 SEB MANIPULAT CHIROPRAC JR TX TIC CENTE SPINAL 1-2 REGIONS THERAPEUT 34205 A C ASHLYPELA IC 4 VALERIE KRUSE PROPHYLAC PSC TIC/DX INJECTION SUBQ/IM INJ J0702 A C ASHLYPELA BETAMETHA 4 VALERIE KRUSE SONE PSC ACETATE & PHOSPHATE 3 MG INJECTION J1030 A C KILPELA 4 VALERIE KRUSE METHYLPRE PSC DNISOLONE ACETATE 40 MG RADEX 34825 [place] SATURNINO ANKLE 4 MEDICAL TAI COMPLETE IMAGING MINIMUM 3 ASS VIEWS DUPLEX 76164 [place] SATURNINO SCAN 4 MEDICAL TAI EXTRACRAN IMAGING IAL ART ASS COMPL BI STUDY RADEX 73950 [place] SATURNINO SHOULDER 4 MEDICAL TAI COMPLETE IMAGING MINIM[place] [address] [place] [address] [place] SATURNINO HEAD/BRAI 4 MEDICAL TAI N W/O IMAGING CONTRAST ASS MATERIAL RADIOLOGI 12008 [place] SATURNINO C 4 MEDICAL TAI EXAMINATI IMAGING ON CHEST ASS SINGLE VIEW FRONTAL RADIOLOGI 73906 Y[facility] ROLDAN C EXAM 4 MEM HOS[facility] MEM HOS[facility] CHEST 2 INC INC VIEWS FRONTAL&L ATERAL CULTURE 19289 [facility]ST BACTERIAL 4 DIAGNOSTI DIAGNOSTI CS CS QUANTTATI VE COLONY COUNT URINE CULTURE 88362 [facility]ST QUEST BCT 4 DIAGNOSTI DIAGNOSTI ISOL&PRSM CS CS PTV ID ISOLATE EA URINE URINLS 15650 A C BRET DIP 4 VALERIE KRUSE STICK/TAB PSC LET REAGNT [place] 311[address] CENTRAL FELIX TRA JT LOWER 4 [place] EXTREM ORTHOPAED W/O ICS PLC CONTRAST MATRL RADEX 04307 [facility] SATURNINO ANKLE 3 MEDICAL TAI COMPLETE IMAGING MINIMUM 3 ASS VIEWS RADEX 25439 [place] SATURNINO FOOT 3 MEDICAL TAI COMPLETE IMAGING MINIMUM 3 ASS VIEWS CRTCHS E0114 [facility]REG INC. UNDARM 3 OTH THAN WOOD PAIR PAD TIP&HNDGR IP RADIOLOGI 77124 SENAIT [place] 3 MEDICAL TAI EXAMINATI IMAGING ON TIBIA ASS & FIBULA 2 VIEWS INJECTION J0696 A C KILPELA 3 VALERIE KRUSE CEFTRIAXO PSC NE SODIUM PER 250 MG THERAPEUT 85957 A C KILPELA IC 3 VALERIE KRUSE PROPHYLAC PSC TIC/DX INJECTION SUBQ/IM INJ J0702 A C KILPELA BETAMETHA 3 VALERIE KRUSE SONE PSC ACETATE & PHOSPHATE 3 MG INJECTION J1030 A C KILPELA 3 VALERIE KRUSE METHYLPRE PSC DNISOLONE ACETATE 40 MG INJ J2930 A C KILPEDEE METHYLPRD 3 VALERIE KRUSE NISOLONE PSC SODIUM SUCCNAT TO 125 MG THERAPEUT 47157 A C KILPELA IC 3 VALERIE KRUSE PROPHYLAC PSC TIC/DX INJECTION SUBQ/IM OPHTH 02724 [facility] 3 NETWORK XM&EVAL LTD INTERMEDI ATE ESTAB PT Encounters Encounter Start End Date Code Location Performer Type Date OFFICE 78184 A C KILPELA OUTPATIEN 4 4 VALERIE KRUSE T VISIT PSC 15 MINUTES OFFICE 81251 CENTRAL HUNTER OUTPATIEN 4 4 KEIRA NIX T VISIT ORTHOPAED 15 ICS PLC MINUTES OFFICE 29976 A C KILPELA OUTPATIEN 4 4 VALERIE KRUSE T VISIT PSC 15 MINUTES OFFICE 90466 A C KILPEDEE OUTPATIEN 4 4 VALERIE KRUSE T VISIT PSC 15 MINUTES OFFICE 18371 A C KILPELA OUTPATIEN 4 4 VALERIE KRUSE T VISIT PSC 15 MINUTES OFFICE 90284 A C KILPELA OUTPATIEN 4 4 VALERIE KRUSE T VISIT PSC 15 [facility] OUTPATIEN INC T OFFICE 24306 A C KILPELA OUTPATIEN 4 4 VALERIE KRUSE T VISIT PSC 15 MINUTES OFFICE 63754 A C KILPELA OUTPATIEN 4 4 VALERIE KRUSE T VISIT PSC 15 MINUTES OFFICE 45015 CENTRAL FELIX TRA OUTPATIEN 3 3 [place] T NEW 45 ORTHOPAED MINUTES ICS PLC OFFICE 44853 A C KILPELA OUTPATIEN 3 3 VALERIE Hernandez VISIT PSC 15 MINUTES Emergency YENI Yuli GONZALEZ MD (ER) 3 18:49 3 19:39 [facility] OFFICE 36043 A C KILPELA OUTPATIEN 3 3 VALERIE KRUSE T VISIT PSC 15 MINUTES OFFICE 49789 A C KILPELA OUTPATIEN 3 3 VALERIE KRUSE T VISIT PSC 15 MINUTES OFFICE 22393 A C KILPELA OUTPATIEN 3 3 VALERIE KRUSE T VISIT PSC 15 MINUTES
--- OUTSIDE RECORDS SUMMARY | 2017-05-27 21:11 | External Medical Summary Rpt | CCD ---
Author Author , JOSEPH Luz JOSEPH Address Unknown Phone [email or web address] Care Team Providers Care Education Assistant Name Role Phone A Alfonso PADILLA MD [facility], A Unavailable Unavailable Alfonso PADILLA MD PSC [facility], Unavailable Unavailable [facility] [employer] Unavailable Unavailable [facility] Unavailable Unavailable [facility], Unavailable Unavailable [facility], Unavailable Unavailable [facility] [place] Unavailable [facility] [facility] [employer], Unavailable Unavailable [employer] [facility] Unavailable Unavailable INC, [facility] FEL[facility], [facility] Unavailable Unavailable [facility] KILPELA JEA, KILPELA Unavailable Unavailable JEA ALESHIA B, ALESHIA B Unavailable Unavailable [facility], Unavailable Unavailable [facility], Unavailable Unavailable [facility] MARCELINA VARELA, Unavailable Unavailable MARCELINA NIX, HUNTER Unavailable Unavailable BOYD Purpose Continuity of Care Document - 08-30-2012 through 2016 Problems Code Diagnosis DOS Provider Status 82847 COMPLETE 04-16-2014 [facility] RUPTURE OF ORTHOPAEDIC ROTATOR S PLC CUFF 26260 PAIN IN 04-03-2014 [facility] JOINT, RADIOLOGY SHOULDER REGION 8404 ROTATOR 03-27-2014 A Alfonso PADILLA CUFF SPRAIN PSC AND STRAIN V700 ROUTINE 03-27-2014 Chriss PADILLA GENERAL PSC MEDICAL [email or web address] [email or web address] FACL 8406 SUPRASPINAT 02-20-2014 [place] [facility] 7820 DISTURBANCE 02-13-2014 Chriss PADILLA OF SKIN PSC SENSATION 7234 BRACHIAL 01-16-2014 [place] [facility]UR[facility]IS OR [facility] RADICULITIS NOS 7391 NONALLOPATH 01-16-2014 [place] IC LESION CHIROPRACTI OF CERVICAL C CENTE REGION NEC 10008 UNSPECIFIED 01-09-2014 Chriss PADILLA VIRAL PSC INFECTION IN CCE & UNS SITE 496 CHRONIC 01-09-2014 A Alfonso PADILLA AIRWAY PSC OBSTRUCTION NEC 52577 SPRAIN AND 12-28-2013 A Alfonso PADILLA STRAIN OF PSC UNSPECIFIED SITE OF FOOT 42285 PAIN IN 12-27-2013 [place] [facility], MEDICAL ANKLE AND IMAGING ASS FOOT 68566 OTHER 12-27-2013 [place] SYMPTOMS MEDICAL REFERABLE IMAGING ASS TO ANKLE AND FOOT JOINT 46357 UNSPECIFIED 11-07-2013 [place] CEREBRAL MEDICAL ARTERY IMAGING ASS OCCLUSION W/INFARCT 436 ACUTE BUT 11-07-2013 [place] ILL-DEFINED [facility]ICAL [facility]ING ASS CEREBROVASC ULAR DISEASE 56216 OSTEOARTHRO 11-07-2013 [place] S UNSPEC MEDICAL WHETHER IMAGING ASS GEN/LOC SHLDR REGION 74009 ALTERED 11-07-2013 [place] MENTAL [facility]ICAL STATUS [facility] 01628 SHORTNESS 11-07-2013 [place] OF BREATH MEDICAL IMAGING ASS E8889 UNSPECIFIED 11-07-2013 [place] FALL [facility] 4660 ACUTE 10-31-2013 A Alfonso PADILLA BRONCHITIS PSC 4928 OTHER 10-31-2013 [place] EMPHYSEMA [facility]ICAL IMAGING ASS 56366 CHEST PAIN 10-31-2013 [facility]NSPECIFIED [facility] 5990 URINARY 09-24-2013 A Alfonso PADILLA TRACT PSC INFECTION SITE NOT SPECIFIED 7881 DYSURIA 09-24-2013 [facility] 33800 CALCANEAL 06-29-2013 [place] SPUR [facility]ICAL [facility] 7295 PAIN IN 06-29-2013 [place] SOFT MEDICAL TISSUES OF IMAGING ASS LIMB 79484 UNSPECIFIED 06-29-2013 [facility] SITE OF ANKLE SPRAIN AND STRAIN 9599 INJURY 06-29-2013 [place] OTHER AND MEDICAL UNSPECIFIED IMAGING ASS UNSPECIFIED SITE 490 BRONCHITIS 03-28-2013 A Alfonso KAUR MD PSC SPECIFIED ACUTE OR CHRONIC 40414 OTHER 03-06-2013 [employer] ACT NOT OBSCURING VISION 3671 MYOPIA 03-06-2013 [employer] [facility] 23948 REGULAR 03-06-2013 [employer] ASTIGMATISM [facility] 4619 ACUTE 08-30-2012 A Alfonso PADILLA SINUSITISMD PSC UNSPECIFIED Procedures Procedure DOS Code Location Performer Comment ARTHROSCO 36737 [facility] PY 4 [place] [facility] SHOULDER ORTHOPAED ROTATOR ICS PLC CUFF REPAIR RADIOLOGI 38025 [facility] [place] [facility] EXAM 4 RADIOLOGY SHA CHEST 2 VIEWS FRONTAL&L ATERAL MRI ANY 68496 [place] [facility] JT UPPER 4 MEDICAL TAI EXTREMITY IMAGING W/O ASS CONTRAST MATRL CHIROPRAC 91964 ERIN SHAFFER TIC 4 SEB MANIPULAT CHIROPRAC JR TX TIC CENTE SPINAL 1-2 REGIONS INJECTION J1030 A C KILPELA 4 VALERIE KRUSE METHYLPRE PSC DNISOLONE ACETATE 40 MG INJ J0702 A C KILPELA BETAMETHA 4 VALERIE KRUSE SONE PSC ACETATE & PHOSPHATE 3 MG THERAPEUT 86450 A C KILPELA IC 4 VALERIE KRUSE PROPHYLAC PSC TIC/DX INJECTION SUBQ/IM RADEX 70447 [place] [facility] ANKLE 4 MEDICAL TAI COMPLETE IMAGING MINIMUM 3 ASS VIEWS DUPLEX 87478 [place] [facility] SCAN 4 MEDICAL TAI EXTRACRAN IMAGING [place] [address] [place] HEAD/BRAI 4 MEDICAL TAI N W/O IMAGING CONTRAST ASS MATERIAL RADIOLOGI 64712 [place] C 4 MEDICAL TAI EXAMINATI IMAGING ON CHEST ASS SINGLE VIEW FRONTAL RADEX 49119 [place] SHOULDER 4 MEDICAL TAI COMPLETE IMAGING MINIMUM 2 ASS VIEWS RADIOLOGI 23463 [facility] ROLDAN C EXAM 4 [facility]OS[facility] CHEST 2 INC INC VIEWS FRONTAL&L ATERAL URINLS 85301 A C KILPELA DIP 4 VALERIE KRUSE STICK/TAB PSC LET REAGNT NON-AUTO MICRSCPY CULTURE 29399 [facility] BACTERIAL 4 DIAGNOSTI DIAGNOSTI CS CS QUANTTATI VE COLONY COUNT URINE CULTURE 09351 [facility] BCT 4 DIAGNOSTI DIAGNOSTI ISOL&PRSM CS CS [place] [address] [facility] FELIX TRA JT LOWER 4 [place] EXTREM ORTHOPAED W/O ICS PLC CONTRAST MATRL CRTCHS E0114 [employer] UNDARM 3 OTH THAN WOOD PAIR PAD TIP&HNDGR IP RADIOLOGI 69139 SENAIT SATURNINO C 3 MEDICAL TAI EXAMINATI IMAGING ON TIBIA ASS & FIBULA 2 VIEWS RADEX 52846 SENAIT CABRERAUTCHER ANKLE 3 MEDICAL TAI COMPLETE IMAGING MINIMUM 3 ASS VIEWS RADEX 24982 SENAIT SATURNINO FOOT 3 MEDICAL TAI COMPLETE IMAGING MINIMUM 3 ASS VIEWS INJ J0702 A C KILPEDEE BETAMETHA 3 VALERIE KRUSE SONE PSC ACETATE & PHOSPHATE 3 MG INJECTION J1030 A C KILPELA 3 VALERIE KRUSE METHYLPRE PSC DNISOLONE ACETATE 40 MG INJECTION J0696 A C KILPELA 3 VALERIE KRUSE CEFTRIAXO PSC NE SODIUM PER 250 MG THERAPEUT 17019 A C KILPEDEE IC 3 VALERIE KRUSE PROPHYLAC PSC TIC/DX INJECTION SUBQ/IM INJ J2930 A Alfonso QUEEN METHYLPRD 3 VALERIE KRUSE NISOLONE PSC SODIUM SUCCNAT TO 125 MG THERAPEUT 68022 A C KILPELA IC 3 VALERIE KRUSE PROPHYLAC PSC TIC/DX INJECTION SUBQ/IM OPHTH [address] [facility] 3 NETWORK XM&EVAL LTD INTERMEDI ATE ESTAB PT Encounters Encounter Start End Date Code Location Performer Type Date OFFICE 09006 A C KILPELA OUTPATIEN 4 4 VALERIE KRUSE T VISIT PSC 15 MINUTES OFFICE 58746 [facility] OUTPATIEN 4 4 KEIRA NIX T VISIT ORTHOPAED 15 [facility] MINUTES OFFICE 59489 A C KILPELA OUTPATIEN 4 4 VALERIE KRUSE T VISIT PSC 15 MINUTES OFFICE 73857 A C KILPEDEE OUTPATIEN 4 4 VALERIE KRUSE T VISIT PSC 15 MINUTES OFFICE 25067 A C KILPELA OUTPATIEN 4 4 VALERIE KRUSE T VISIT PSC 15 MINUTES OFFICE 60459 A C KILPELA OUTPATIEN 4 4 VALERIE KRUSE T VISIT PSC 15 MINUTES OFFICE 65976 A C KILPELA OUTPATIEN 4 4 VALERIE KRUSE T VISIT PSC 15 MINUTES [facility] YULI - 4 4 [facility] OUTPATIEN INC T OFFICE 54422 A C KILPELA OUTPATIEN 4 4 VALERIE KRUSE T VISIT PSC 15 MINUTES OFFICE 46973 [facility] FELIX TRA OUTPATIEN 3 3 [place] T NEW 45 ORTHOPAED MINUTES [facility] OFFICE 55167 A C KILPELA OUTPATIEN 3 3 VALERIE KRUSE T VISIT PSC 15 MINUTES OFFICE 68332 A C KILPELA OUTPATIEN 3 3 VALERIE KRUSE T VISIT PSC 15 MINUTES OFFICE 57004 A C KILPELA OUTPATIEN 3 3 VALERIE KRUSE T VISIT PSC 15 MINUTES OFFICE 02308 A C KILPELA OUTPATIEN 3 3 VALERIE KRUSE T VISIT PSC 15 MINUTES
--- OUTSIDE RECORDS SUMMARY | 2017-05-27 21:11 | External Medical Summary Rpt ---
Author Author JOSEPH Karl, JOSEPH Production Organization [employer] Address Unknown Phone Unavailable Results Gas panel in Arterial blood Observa Value Referen Units Interpr Notes Date tion ce etation Range Base -2.4-+2.3 MMOL/L High No May 27 excess in informati 2017 5:02 Arterial on in PM blood source data Arteria ACCEPTA No No No No May 27 l BLE informa informa informa informa 2017 patency tion in tion in tion in tion in 5:02 PM Wrist source source source source artery data data data data --pre arteria l punctur e Bicarbona 22.0 - MMOL/L High No May 27 te 26.0 informati 2017 5:02 [Moles/vo on in PM lume] in source Arterial data blood Oxygen No No No No May 27 content informati informati informati informati 2017 5:02 in on in on in on in on in PM Arterial source source source source blood data data data data Carbon 35.0 - MMHG High May 27 dioxide 45.0 2016 5:02 [Partial CRITICAL PM pressure] RESULTS in Arterial RESU blood LTS CALLED TO: RESULTS TAKEN TO DR [id number] Carlos,[facility] pH of 7.35 - MMOL/L Normal No May 27 Arterial 7.45 informati 2016 5:02 blood on in PM source data Oxygen 80 - 100 MMHG Low alert May 27 [Partial 2016 5:02 pressure] CRITICAL PM in RESULTS Arterial blood RESU LTS CALLED TO: RESULTS TAKEN TO DR [id number] Carlos,[facility] Oxygen 90 - 100 % Low alert No May 27 saturatio informati 2016 5:02 n.calcula on in PM garcia from source oxygen data partial pressure in Arterial blood Carbon 23 - 27 MMOL/L High No May 27 dioxide, informati 2016 5:02 total on in PM [Moles/vo source lume] in data Arterial blood Lactate [Moles/volume] in Blood Observa Value Referen Units Interpr Notes Date tion ce etation Range Lactate 0.4 - 2.0 mmol/L Normal No May 27 [Moles/vo informati 2016 4:31 lume] in on in PM Blood source data CBC W Auto Differential panel in Blood Observa Value Referen Units Interpr Notes Date tion ce etation Range Basophils 0 - 0.2 K/MM3 Normal No May 27 informati 2016 4:31 [#/volume on in PM ] in source Blood by data Automated count Basophils 0.1 - 2.0 % Normal No May 27 / informati 2016 4:31 leukocyte on in PM s in source Blood by data Automated count Eosinophi 0.0 - 0.4 K/mm3 Normal No May 27 ls informati 2016 4:31 [#/volume on in PM ] in source Blood by data Automated count Eosinophi 0.1 - % Normal No May 27 ls/100 12.0 informati 2016 4:31 leukocyte on in PM s in source Blood by data Automated count Granulocy 1.8 - 7.8 K/mm3 Normal No May 27 jesse informati 2016 4:31 [#/volume on in PM ] in source Blood by data Automated count Granulocy 37.0 - % Normal No May 27 jesse/100 80.0 informati 2016 4:31 leukocyte on in PM s in source Blood by data Automated count Hematocri 37.0 - % Low No May 27 t [Volume 47.0 informati 2016 4:31 on in PM Fraction] source of Blood data Hemoglobi 12.2 - g/dL Low No May 27 n 16.2 informati 2016 4:31 [Mass/vol on in PM ume] in source Blood data Lymphocyt 0.7 - 4.5 K/mm3 Normal No May 27 es informati 2016 4:31 [#/volume on in PM ] in source Unspecifi data ed specimen by Automated count Lymphocyt 10 - 50.0 % Normal No May 27 es informati 2016 4:31 [#/volume on in PM ] in source Unspecifi data ed specimen by Automated count Erythrocy 27 - 31.2 pg Normal No May 27 te mean informati 2016 4:31 corpuscul on in PM ar source hemoglobi data n [Entitic mass] Erythrocy 31.8 - g/dl Low No May 27 te mean 35.4 informati 2016 4:31 corpuscul on in PM ar source hemoglobi data n concentra tion [Mass/vol ume] by Automated count Erythrocy 82.2 - fl High No May 27 te mean 97.8 informati 2016 4:31 corpuscul on in PM ar volume source [Entitic data volume] by Automated count Monocytes 0.1 - 1.0 K/mm3 Normal No May 27 informati 2016 4:31 [#/volume on in PM ] in source Blood by data Automated count Monocytes 1.7 - 9.3 % Normal No May 27 /100 informati 2016 4:31 leukocyte on in PM s in source Blood by data Automated count Platelet 7.4 - fl Normal No May 27 mean 10.4 informati 2016 4:31 volume on in PM [Entitic source volume] data in Blood by Automated count Platelets 142 - 424 K/mm3 Low No May 27 informati 2017 4:31 [#/volume on in PM ] in source Blood data Erythrocy 4.2 - 5.4 M/mm3 Low No May 27 jesse informati 2017 4:31 [#/volume on in PM ] in source Amniotic data fluid Erythrocy 11.5 - % High No May 27 te 17.5 informati 2016 4:31 distribut on in PM ion width source [Entitic data volume] by Automated count Leukocyte 4.8 - K/MM3 Normal No May 27 s 10.8 informati 2016 4:31 [#/volume on in PM ] in source Blood data Comprehensive metabolic 2000 panel in Serum or Plasma Observa Value Referen Units Interpr Notes Date tion ce etation Range Albumin/G 1.1 - 1.8 No Low No May 27 lobulin informati informati 2017 4:31 [Mass on in on in PM ratio] in source source Serum or data data Plasma Albumin 3.4 - 5.0 gm/dL Low No May 27 [Mass/vol informati 2017 4:31 ume] in on in PM Serum or source Plasma data Alkaline 46 - 116 U/L High No May 27 phosphata informati 2017 4:31 se on in PM [Enzymati source c data activity/ volume] in Serum or Plasma Bilirubin 0.2 - 1.0 mg/dL Normal No May 27 .total informati 2016 4:31 [Mass/vol on in PM ume] in source Serum or data Plasma Urea 7 - 18 mg/dL Normal No May 27 nitrogen informati 2016 4:31 [Mass/vol on in PM ume] in source Serum or data Plasma Calcium 8.5 - mg/dL Normal No May 27 [Mass/vol 10.1 informati 2016 4:31 ume] in on in PM Serum or source Plasma data Chloride 98 - 107 mmoL/L Normal No May 27 [Moles/vo informati 2016 4:31 lume] in on in PM Serum or source Plasma data Carbon 21.0 - mmoL/L Normal No May 27 dioxide, 32.0 informati 2016 4:31 total on in PM [Moles/vo source lume] in data Serum or Plasma Creatinin 0.55 - mg/dL Normal No May 27 e 1.02 informati 2016 4:31 [Mass/vol on in PM ume] in source Serum or data Plasma Creatinin 50 - 200 ML/MIN Normal No May 27 e renal informati 2016 4:31 clearance on in PM source predicted data by Cockcroft -Gault formula Estimated 59- ML/MIN No REFERENCE May 27 informati RANGE: 2017 4:31 glomerula on in >60 PM r source ML/MIN/1. filtratio data 73 SQUARE n rate METERSIf (GF this patient is -A merican, then multiply theresult by 1.210. Globulin 1.3 - 3.2 gm/dL High No May 27 [Mass/vol informati 2016 4:31 ume] in on in PM Serum source data Glucose 74 - 106 mg/dL High No May 27 [Mass/vol informati 2017 4:31 ume] in on in PM Serum or source Plasma data Potassium 3.5 - 5.1 mmoL/L Low No May 27 informati 2016 4:31 [Moles/vo on in PM lume] in source Serum or data Plasma Sodium 136 - 145 mmoL/L Normal No May 27 [Moles/vo informati 2017 4:31 lume] in on in PM Serum or source Plasma data Aspartate 15 - 37 U/L Normal No May 27 informati 2017 4:31 aminotran on in PM sferase source [Enzymati data c activity/ volume] in Serum or Plasma Alanine 12 - 78 U/L Normal No May 27 aminotran informati 2016 4:31 sferase on in PM [Enzymati source c data activity/ volume] in Serum or Plasma Protein 6.4 - 8.2 gm/dL Normal No May 27 [Mass/vol informati 2016 4:31 ume] in on in PM Serum or source Plasma data Urea nitrogen [Mass/volume] in Serum or Plasma [...] - 50 % Normal No Feb 15 2017 tion in 1:36 PM source data [...] 5.4 M/mm3 Normal No Feb 15 jesse inform2016 1:36 [#/volume on in PM ] [...] 106 mg/dL Normal No Jan 20 [Mass/vol inform2016 ume] in on in 12:40 PM Serum [...] 2.0 % Normal No Jan 20 / informati 2016 leukocyte on in 12:40 PM [...] % Normal No Jan 20 jesse/100 80.0 ati 2016 leukocyte on in 12:40 PM s in source Blood by data Automated count Hematocri 37.0 - % Normal No Jan 20 t [Volume 47.0 ati 2016 on in 12:40 PM Fraction] source of Blood data Hemoglobi 12.2 - g/dL No Jan 20 n 16.2 informati informati 2016 [Mass/vol on in on in 12:40 PM ume] in source source Blood data data Lymphocyt 0.7 - 4.5 K/mm3 Normal No Jan 20 es informati 2016 [#/volume on in 12:40 PM ] in source Unspecifi data ed specimen by Automated count Lymphocyt 10 - 50.0 % Normal No Jan 20 es informati 2016 [#/volume on in 12:40 PM ] in source Unspecifi data ed specimen by Automated count Erythrocy 27 - 31.2 pg Normal No Jan 20 te mean informati 2016 corpuscul on in 12:40 PM ar source hemoglobi data n [Entitic mass] Erythrocy 31.8 - g/dl Low No Jan 20 te mean 35.4 informati 2016 corpuscul on in 12:40 PM ar source hemoglobi data n concentra tion [Mass/vol ume] by Automated count Erythrocy 82.2 - fl Normal No Jan 20 te mean 97.8 informati 2016 corpuscul on in 12:40 PM ar volume source [Entitic data volume] by Automated count Monocytes 0.1 - 1.0 K/mm3 Normal No Jan 20 informati 2016 [#/volume on in 12:40 PM ] in source Blood by data Automated count Monocytes 1.7 - 9.3 % Normal No Jan 20 /100 informati 2016 leukocyte on in 12:40 PM s in source Blood by data Automated count Platelet 7.4 - fl Normal No Jan 20 mean 10.4 informati 2016 volume on in 12:40 PM [Entitic source volume] data in Blood by Automated count Platelets 142 - 424 K/mm3 Normal No Jan 20 informati 2016 [...]
--- OUTSIDE RECORDS SUMMARY | 2017-05-27 21:11 | External Medical Summary Rpt | CCD ---
Author Author , JOSEPH RUIZ Address Unknown Phone [email or web address] Immunization Name Date Rout CVX Reac Dose [...]
--- OUTSIDE RECORDS SUMMARY | 2017-05-27 21:11 | External Medical Summary Rpt | CCD ---
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 Unavailable Unavailable [facility] Unavailable Unavailable [facility], Unavailable Unavailable [facility] SATURNINO TAI, Unavailable Unavailable [facility] [place] Unavailable [facility] [employer], Unavailable Unavailable [facility] [employer] [facility] [facility] Un[facility] Un[facility] INC, [facility] FELIX TRA, [facility] Unavailable Unavailable [facility] Un[facility], [facility] KILPELA JEA, KILPELA Unavailable Unavailable JEA ALESHIA B, ALESHIA B Unavailable Unavailable [facility], Unavailable Unavailable [facility], Unavailable Unavailable [facility] MARCELINA VARELA, Unavailable Unavailable MARCELINA NIX, HUNTER Unavailable Unavailable BOYD Purpose Continuity of Care Document - 08-30-2012 through 2016 Problems Code Diagnosis DOS Provider Status 61379 COMPLETE 04-16-2014 [facility] RUPTURE OF ORTHOPAEDIC ROTATOR S PLC CUFF 41739 PAIN IN 04-03-2014 [facility] JOINT, RADIOLOGY SHOULDER REGION 8404 ROTATOR 03-27-2014 A Alfonso PADILLA CUFF SPRAIN PSC AND STRAIN V700 ROUTINE 03-27-2014 Chriss PADILLA GENERAL PSC [email or web address] [email or web address] FACL 8406 SUPRASPINAT 02-20-2014 [facility] 7820 DISTURBANCE 02-13-2014 Chriss PADILLA OF SKIN PSC SENSATION 7234 BRACHIAL 01-16-2014 [place] NEURITIS OR [facility] RADICULITIS NOS 7391 NONALLOPATH 01-16-2014 [place] IC LESION CHIROPRA[facility]I OF CERVICAL C CENTE REGION NEC 22839 UNSPECIFIED 01-09-2014 Chriss PADILLA VIRAL PSC INFECTION IN CCE & UNS SITE 496 CHRONIC 01-09-2014 A Alfonso PADILLA AIRWAY PSC OBSTRUCTION NEC 83920 SPRAIN AND 12-28-2013 A Alfonso PADILLA STRAIN OF PSC UNSPECIFIED SITE OF FOOT 52243 PAIN IN 12-27-2013 [facility] [facility], MEDICAL ANKLE AND IMAGING ASS FOOT 33066 OTHER 12-27-2013 [facility] SYMPTOMS MEDICAL REFERABLE IMAGING ASS TO ANKLE AND FOOT JOINT 26374 UNSPECIFIED 11-07-2013 [facility] CEREBRAL MEDICAL ARTERY IMAGING ASS OCCLUSION W/INFARCT 436 ACUTE BUT 11-07-2013 [facility] ILL-DEFINED MEDICAL IMAGING ASS CEREBROVASC ULAR DISEASE 81269 OSTEOARTHRO 11-07-2013 [place] S UNSPEC MEDICAL WHETHER IMAGING ASS GEN/LOC SHLDR REGION 18469 ALTERED 11-07-2013 [facility] MENTAL [facility]ICAL STATUS [facility] 62420 SHORTNESS 11-07-2013 [place] OF BREATH MEDICAL IMAGING ASS E8889 UNSPECIFIED 11-07-2013 [facility] FALL [facility] 4660 ACUTE 10-31-2013 A Alfonso PADILLA BRONCHITIS PSC 4928 OTHER 10-31-2013 [facility] EMPHYSEMA [facility] 16414 CHEST PAIN 10-31-2013 [facility]PECIFIED [facility] 5990 URINARY 09-24-2013 A Alfonso PADILLA TRACT PSC INFECTION SITE NOT SPECIFIED 7881 DYSURIA 09-24-2013 [facility] 37997 CALCANEAL 06-29-2013 [facility] SPUR [facility]ICAL [facility] 7295 PAIN IN 06-29-2013 [place] SOFT MEDICAL TISSUES OF IMAGING ASS LIMB 15159 UNSPECIFIED 06-29-2013 [facility] SITE OF ANKLE SPRAIN AND STRAIN 9599 INJURY 06-29-2013 [place] OTHER AND MEDICAL UNSPECIFIED IMAGING ASS UNSPECIFIED SITE 490 BRONCHITIS 03-28-2013 A Alfonso KAUR MD PSC SPECIFIED ACUTE OR CHRONIC 42134 OTHER 03-06-2013 [facility] [employer] ACT NOT OBSCURING VISION 3671 MYOPIA 03-06-2013 [facility] 57514 REGULAR 03-06-2013 [facility]MATISM [facility] 4619 ACUTE 08-30-2012 A Alfonso PADILLA SINUSITISMD PSC UNSPECIFIED Procedures Procedure DOS Code Location Performer Comment ARTHROSCO 08851 [facility] PY 4 [place] BOY[place] SHOULDER ORTHOPAED ROTATOR ICS PLC CUFF REPAIR RADIOLOGI 06495 [facility] [place] [facility] EXAM 4 RADIOLOGY SHA CHEST 2 VIEWS FRONTAL&[place] 99802 [place] [facility]URN[facility] JT UPPER 4 MEDICAL TAI EXTREMITY IMAGING W/O ASS CONTRAST MATRL CHIROPRAC 03600 ERIN SHAFFER TIC 4 SEB MANIPULAT CHIROPRAC JR TX TIC CENTE SPINAL 1-2 REGIONS INJECTION J1030 A C KILPELA 4 VALERIE KRUSE METHYLPRE PSC DNISOLONE ACETATE 40 MG INJ J0702 A C KILPELA BETAMETHA 4 VALERIE KRUSE SONE PSC ACETATE & PHOSPHATE 3 MG THERAPEUT 59131 A C KILPELA IC 4 VALERIE KRUSE PROPHYLAC PSC TIC/DX INJECTION SUBQ/IM RADEX 97186 [place] [facility] ANKLE 4 MEDICAL TAI COMPLETE IMAGING MINIMUM 3 ASS VIEWS DUPLEX 69203 [place] [facility] SCAN 4 MEDICAL TAI EXTRACRAN IMAGING [place] [address] [place] [facility] HEAD/BRAI 4 MEDICAL TAI N W/O IMAGING CONTRAST ASS MATERIAL RADIOLOGI 25719 [place] SATURN[facility] C 4 MEDICAL TAI EXAMINATI IMAGING ON CHEST ASS SINGLE VIEW FRONTAL RADEX 60571 [place] [facility]URN[facility] SHOULDER 4 MEDICAL TAI COMPLETE IMAGING MINIMUM 2 ASS VIEWS RADIOLOGI 91943 [facility] ROLDAN C EXAM 4 MEM HOSP MEM HOS[facility] CHEST 2 INC INC VIEWS FRONTAL&L ATERAL URINLS 23956 A C KILPELA DIP 4 VALERIE KRUSE STICK/TAB PSC LET REAGNT NON-AUTO MICRSCPY CULTURE 36668 [facility] BACTERIAL 4 DIAGNOSTI DIAGNOSTI CS CS QUANTTATI VE COLONY COUNT URINE CULTURE 14544 [facility] BCT 4 DIAGNOSTI DIAGNOSTI ISOL&PRSM CS CS PT[place] [address] [facility] FELIX TRA JT LOWER 4 [place] EXTREM ORTHOPAED W/O ICS PLC CONTRAST MATRL CRTCHS E0114 [employer] UNDARM 3 OTH THAN WOOD PAIR PAD TIP&HNDGR IP RADIOLOGI 48647 SE[facility] SATURNINO C 3 MEDICAL TAI EXAMINATI IMAGING ON TIBIA ASS & FIBULA 2 VIEWS RADEX 96442 SENA[facility] CABRERAUTCHER ANKLE 3 MEDICAL TAI COMPLETE IMAGING MINIMUM 3 ASS VIEWS RADEX 40765 SENA[facility] SATURNINO FOOT 3 MEDICAL TAI COMPLETE IMAGING MINIMUM 3 ASS VIEWS INJ J0702 A C KILPEDEE BETAMETHA 3 VALERIE KRUSE SONE PSC ACETATE & PHOSPHATE 3 MG INJECTION J1030 A C KILPELA 3 VALERIE KRUSE METHYLPRE PSC DNISOLONE ACETATE 40 MG INJECTION J0696 A C KILPELA 3 VALERIE KRUSE CEFTRIAXO PSC NE SODIUM PER 250 MG THERAPEUT 30680 A C KILPEDEE IC 3 VALERIE KRUSE PROPHYLAC PSC TIC/DX INJECTION SUBQ/IM INJ J2930 A Alfonso QUEEN METHYLPRD 3 VALERIE KRUSE NISOLONE PSC SODIUM SUCCNAT TO 125 MG THERAPEUT 47944 A C KILPELA IC 3 VALERIE KRUSE PROPHYLAC PSC TIC/DX INJECTION SUBQ/IM OPHTH 24808 [facility] 3 NETWORK XM&EVAL LTD INTERMEDI ATE ESTAB PT Encounters Encounter Start End Date Code Location Performer Type Date OFFICE 16980 A C KILPELA OUTPATIEN 4 4 VALERIE KRUSE T VISIT PSC 15 MINUTES OFFICE 56763 [facility]TER OUTPATIEN 4 4 KEIRA NIX T VISIT ORTHOPAED 15 ICS PLC MINUTES OFFICE 55807 A C KILPELA OUTPATIEN 4 4 VALERIE KRUSE T VISIT PSC 15 MINUTES OFFICE 96618 A C KILPEDEE OUTPATIEN 4 4 VALERIE KRUSE T VISIT PSC 15 MINUTES OFFICE 37691 A C KILPELA OUTPATIEN 4 4 VALERIE KRUSE T VISIT PSC 15 MINUTES OFFICE 09521 A C KILPELA OUTPATIEN 4 4 VALERIE KRUSE T VISIT PSC 15 MINUTES OFFICE 38156 A C KILPELA OUTPATIEN 4 4 VALERIE KRUSE T VISIT PSC 15 MINUTES [facility] YULI - 4 4 [facility] T OFFICE 83811 A C KILPELA OUTPATIEN 4 4 VALERIE KRUSE T VISIT PSC 15 MINUTES OFFICE 58665 [facility] FELIX TRA OUTPATIEN 3 3 [place] T NEW 45 ORTHOPAED MINUTES ICS PLC OFFICE 71438 A C KILPELA OUTPATIEN 3 3 VALERIE KRUSE T VISIT PSC 15 MINUTES OFFICE 64760 A C KILPELA OUTPATIEN 3 3 VALERIE KRUSE T VISIT PSC 15 MINUTES OFFICE 27356 A C KILPELA OUTPATIEN 3 3 VALERIE KRUSE T VISIT PSC 15 MINUTES OFFICE 24109 A C KILPELA OUTPATIEN 3 3 VALERIE KRUSE T VISIT PSC 15 MINUTES
--- OUTSIDE RECORDS SUMMARY | 2017-05-27 21:11 | External Medical Summary Rpt | CCD ---
Author Author , JOSEPH RUIZ Address Unknown Phone [email or web address]Commissioner Immunization Name Date Rout CVX Reac Dose [...]
[2017-05-27 21:29] VITALS: BP 113/75
[2017-05-27 21:57] VITALS: BP 101/59
[2017-05-27 23:52] VITALS: BP 117/67
[2017-05-28 03:26] VITALS: BP 107/66
[2017-05-28 06:50] LABS: LYMPH % 18.3 % (10-50.0)
--- NOTE | 2017-05-28 07:06 | RADIOLOGY REPORT PS360 ---
CT CHEST W/ CONTRAST INDICATION: Shortness of breath, cough, history of lung cancer SOA, S/P SX FOR LUNG CANCER ORDERING PHYSICIAN: Mendel Stein MD PATIENT AGE: 71 years COMPARISON: Chest CT of 07/29/2016 TECHNIQUE: Axial images are obtained with 75 mL Isovue-370 contrast. Sagittal and coronal reformatted images are reviewed as well. FINDINGS: Enlarging soft tissue mass is noted in the left perihilar region measuring 2.4 x 2.4 cm previously 1.7 x 2 cm. There is increased density also in the aortopulmonic window 3 x 1.6 cm consistent with a lymph node slightly more prominent than when compared to the previous study. There is a 1.5 cm precarinal lymph node not significantly changed. There are postsurgical changes of the left upper lobe and lingula with atelectasis and/or fibrotic change within the lingula. A 1.4 cm parenchymal opacity is present in the left lung base within the left lower lobe anteriorly which could be due to an area of infiltrate or atelectasis. A rounded opacity is present in the right lung base posteriorly at 1 cm and could be due to an area of atelectasis, infiltrate, or even neoplasm. There are other areas of parenchymal opacities in the lung bases right more extensive left consistent with atelectasis and/or infiltrate. Centrilobular emphysematous changes with mild pulmonary fibrosis. Normal heart size. There are coronary artery calcifications consistent with coronary artery disease. There is trace bilateral pleural effusion. Upper abdominal images show a 12 mm isodensity within the spleen nonspecific. There is mild thickening of the colon wall which could be due to colitis. Areas of bony sclerosis involves the T11, L1, and L3 and L4 vertebral bodies concerning for metastatic disease. IMPRESSION: 1. Enlarging left hilar mass consistent with residual/recurrent neoplasm with mild mediastinal adenopathy 2. Scattered parenchymal opacities in the lower lobes which could be due to pneumonia or atelectatic change. Neoplasm not excluded and a rounded opacity in the right lower lobe. 3. Multiple sclerotic lesions within the spine consistent with metastasis. Bone scan may confirm. 4. Indeterminate 10 mm hypodensity in the spleen. 5. Bowel wall thickening involving the colon which could be due to colitis
--- NOTE | 2017-05-28 07:43 | HISTORY AND PHYSICAL REPORT ---
Demographics: Admit date: 05/27/17 Chief complaint: Right lower lobe pneumonia PRIMARY DIAGNOSIS: PNEUMONIA; LUNG CA Allergies: Coded Allergies: fexofenadine (HEART RACES 05/27/17) codeine (NA-NAUSEA/VOMITING 05/27/17) metronidazole (From FLAGYL) (NA-NAUSEA/VOMITING 05/27/17) morphine (NA-NAUSEA/VOMITING 05/27/17) History of present illness: History of present illness: 71-year-old white female with established diagnosis of lung cancer, follows with Dr. Grisel Robles in [place], and was seen on May 06 after several cycles of chemotherapy and was told that she had had some shrinkage of her tumor burden. Over the past couple of days however, she's had increasing cough, shortness of air and difficulty breathing with some sputum production. He came to the emergency department and was found to have an infiltrate. Given her comorbid conditions with lung cancer, protein calorie malnutrition with low BMI and sputum production she was admitted to hospital for IV antibiotics and enhance pulmonary toilet. This morning she feels somewhat better, continues to have a cough. Past medical history: Family HX Diabetes No CAD No Hypertension Yes Hyperlipidemia Yes Cancer Yes TB No Immunization HX Ped.Immunizations UTD Yes DT/Tetanus < 1 YR AGO Flu 2YRSorMore Pneumonia Refuses TB Test in last year Yes Result Negative General CAD? No Angina: Yes ME: No Hypertension? No Hyperlipidemia? No CHF? No DVT? No PE? No COPD? Yes Asthma? No Anemia? No GERD? No Gastric ulcers? No GI Bleed? No Hernia? No Thyroid Problems? No Hypothyroidism? No CVA? Yes Seizures? No Diabetes? No Renal Insuffiency? No UTI? No Stones? No BPH? No GB Disease: Yes Nephritic Syndrome? No Asplenia? No Hepatitis? No Sickle Cell Disease? No Arthritis? No Migraines? No Cataracts? No Glaucoma? No MRSA? No HIV? No TB? No Anxiety? No Depression? No Cancer? Yes Site: LUNG Past Surgical HX Previous Surgery?Y CYST RT BREAST TUBAL GALLBLADDER LEFT ROTATOR CUFF LEFT LUNG CA SURGERY Current home meds: Active Scripts Ondansetron (Zofran 8MG Odt) 8 MG PO Q8HP PRN nausea #20 ODT Prov: 08/06/14 Aspirin (Aspir-Hannah) 325 MG PO DAILY #30 ECT Ref 11 Prov: 11/08/13 Reported Medications Cetirizine Hcl (All Day Allergy) 10 MG PO DAILY Albuterol (Albuterol Inhaler 17GM) 2 PUFFS IN BID #1 INH AZELASTINE HCL (Astelin) 2 SPRAY NA BID #1 BOT Ranitidine Hcl (Ranitidine 150MG) 300 MG PO BID Diazepam (Valium 10MG) 10 MG PO BID Acetaminophen W/ Hydrocodone (Lortab 5/500) 10 MG PT BID Levofloxacin (Levaquin 500MG) 500 MG PO DAILY Social Hx: Smoking HX Tobacco Yes Type Cigarettes Packs/day < 1 PACK Alcohol Alcohol: No Hx of Drug Use Drug Use? No Patien't marital status is single Patient's support system is good Review of systems: Constitutional fever, malaise, weakness. Respiratory cough, shortness of breath. Cardiovascular No no symptoms reported Gastrointestinal/Abdominal No no symptoms reported Genitourinary No: no symptoms reported. Musculoskeletal other (right-sided chest wall pain). Neurological Yes: weakness. Exam: Lab data for last 24 hours: Laboratory Tests 05/28/17 0600: WBC 5.6, RBC 2.45 L, Hgb 8.0 L, Hct 24.6 L, MCV 100.3 H, RDW 18.5 H, Plt Count 58 L, MPV 9.6, Gran % 70.2, Gran # 3.9, Lymphocytes % 18.3, Monocytes % 9.7 H, Eosinophils % 1.7, Basophils % 0.1, Lymphocytes # 1.0, Monocytes # 0.5, Eosinophils # 0.1, Basophils # 0.0, PUBS MCHC 32.3, MCH 32.4 H 05/27/17 1702: ABG pH 7.41, ABG pCO2 (Temp Corrct 52.4 H, ABG pO2 (Temp Correct 27.0 *L, ABG HCO3 32.5 H, ABG Total CO2 34.1 H, ABG O2 Sat (Calculated) 51.7 *L, ABG Base Excess 7.8 H, Sina Test ACCEPTABLE 05/27/17 1631: Lactic Acid 1.6 05/27/17 1631: Sodium 143, Potassium 3.3 L, Chloride 101, Carbon Dioxide 32, BUN 9, Creatinine 0.8, Estimated Creat Clear 54, Estimated GFR (MDRD) 71, Glucose 110 H, Calcium 9.3, Total Bilirubin 0.6, AST 20, ALT 17, Alkaline Phosphatase 129 H, Total Protein 7.3, Albumin 3.1 L, Globulin 4.2 H, Albumin/Globulin Ratio 0.7 L, WBC 9.0, RBC 3.37 L, Hgb 10.4 L, Hct 33.0 L, MCV 98.2 H, RDW 18.1 H, Plt Count 86 L, MPV 9.3, Gran % 74.1, Gran # 6.7, Lymphocytes % 16.2, Monocytes % 8.4, Eosinophils % 1.0, Basophils % 0.3, Lymphocytes # 1.5, Monocytes # 0.8, Eosinophils # 0.1, Basophils # 0.0, PUBS MCHC 31.4 L, MCH 30.8, Mycoplasma pneumon IgM NON-REACTIVE Microbiology 05/28 0345 SPUTUM: Organism ID (Sequencing 2)(LALI) - CAN Cancelled: INCLUDED WITH SPUTUM C/S 05/27 164 BLOOD: Anaerobic Blood Culture - CAN Cancelled: @DUPLICATE 05/27 164 BLOOD: Aerobic Blood Culture - CAN Cancelled: @DUPLICATE 05/27 164 BLOOD: Anaerobic Blood Culture - CAN Cancelled: Cancelled via OE: DOCTOR ORDER 05/27 164 BLOOD: Aerobic Blood Culture - CAN Cancelled: Cancelled via OE: DOCTOR ORDER 05/27 1635 SPUTUM: Sputum Culture - RES 05/27 163 SPUTUM: Gram Stain - RES 05/27 163 BLOOD: Anaerobic Blood Culture - RECD 05/27 163 BLOOD: Aerobic Blood Culture - RECD 05/27 1631 BLOOD: Anaerobic Blood Culture - RECD 05/27 1631 BLOOD: Aerobic Blood Culture - RECD Admission vital signs: 1ST Vital Signs Result Date Time Pulse Ox 67 05/27 1624 B/P 119/67 05/27 1624 Temp 99.1 05/27 162 Pulse 125 05/27 1624 Resp 18 05/27 162 O2 Delivery OXYGEN 05/27 210 O2 Flow Rate 2 05/27 2230 Additional information: Patient is alert talkative, complained of some pain when she takes a deep breath in. ENT exam is dry but clear, lungs have rhonchi and crackles in both sides, especially in the right lower lung field. Abdomen soft nontender, she has no edema. Muscle cachexia and wasting noted. No cranial nerve defects Plan: Problem List 1. RLL pneumonia 2. Lung cancer 3. COPD with acute exacerbation Plan: Agree with admission, continue IV antibiotic therapy. Close observation. Pulmonary toilet. Instructed on incentive spirometer today. Blood counts have dropped bilaterally this is a hydration phenomenon. at 0742
[2017-05-28 08:20] VITALS: BP 100/61
[2017-05-28] MEDS ORDERED: ACETAMINOPHEN &1 TA1 PO (11:20)
[2017-05-28] MEDS ORDERED: GABAPENTIN100 MG PO (11:20)
[2017-05-28] MEDS ORDERED: DIAZEPAM10 M1 PO (11:21)
[2017-05-28] MEDS ORDERED: FAMOTIDINE 20MG20 MG PO (11:21)
--- NOTE | 2017-05-28 11:26 | PHARMACY CLINIC NOTE ---
Patient Demographics Patient Demographics Admission date: 05/27/17 Date: 05/28/17 Time: 112 Allergies Coded Allergies: fexofenadine (HEART RACES 05/27/17) codeine (NA-NAUSEA/VOMITING 05/27/17) metronidazole (From FLAGYL) (NA-NAUSEA/VOMITING 05/27/17) morphine (NA-NAUSEA/VOMITING 05/27/17) HEIGHT- FT: 5 IN: 4.00 K.527 VTE General Information Labs: Laboratory Tests 05/28 05/27 0600 1631 Hematology Hgb (12.2 - 16.2 g/dL) 8.0 L 10.4 L Hct (37.0 - 47.0 %) 24.6 L 33.0 L Plt Count (142 - 424 K/mm3) 58 L 86 L Disclaimer The following section includes nursing documentation that has been pulled in for pharmacy review. Patient's VTE score: 4 Patient's VTE Risk: LOW RISK Clinical trial participant? No VTE prophylaxis NQF 0371 VTE prophylaxis ordered? Yes Type of prophylaxis/treatment: ARAMIS at 1126
[2017-05-28 12:30] VITALS: BP 90/51
[2017-05-28 16:00] VITALS: BP 117/72
[2017-05-28 19:52] VITALS: BP 126/74
[2017-05-29 03:46] VITALS: BP 114/72
--- NOTE | 2017-05-29 08:07 | ACUTE CARE PROGRESS NOTE (QUA) ---
Progress Notes Subjective Date 05/29/17 Time 0805 Note Patient is awake, but is very noncommunicative this morning, seems somewhat depressed. Reports that she is in a significant amount of pain and is unwilling to move or get up out of the bed. She continues to cough up lots of sputum. She continues to have lower than desirable pulse oximetry readings, 92 percent on 2 L nasal cannula. Lungs have lots of rhonchi, some crackles. The same as yesterday. Heart rate regular, abdomen soft. LEFT shoulder is bruised, apparently the patient fell at home several weeks ago and has not sought treatment for this. Objective Findings Last VS-Temp:98.4 B/P:114/72 Pulse:105 Resp:18 SaO2:96 OXYGEN Last weight lbs:109 oz:3 K.527 Method:Bed Scales Assessment/Plan Problem List 1. RLL pneumonia Qualifiers: Pneumonia type: due to unspecified organism Qualified Code: J18.1 - Lobar pneumonia, unspecified organism 2. Lung cancer Qualifiers: Laterality: left Lung location: hilum of lung Qualified Code: C34.02 - Malignant neoplasm of left main bronchus 3. COPD with acute exacerbation Patient condition Stable Plan: continue current care, patient's pain seems to be a very real issue. I've increased the dose of her hydrocodone to 1 or 2 tablets every 6 hours when necessary severe pain. Apparently she is "ALLERGIC" to Percocet. she might be a good candidate for fentanyl patch as an outpatient. Add Mucomyst nebs for sputum clearance. I've encouraged her to try to get up and out of bed to eat her meals. I will also x-ray her shoulder because of her history of fall and the pain and bruising on the LEFT shoulder. This inpt stay is expected to cross 2 MNs from start of care Yes at 0807
[2017-05-29 08:13] VITALS: BP 125/77
--- NOTE | 2017-05-29 10:23 | RADIOLOGY REPORT PS360 ---
[id number]-3 VIEWS HISTORY: Pain following injury fall at home ORDERING PHYSICIAN: Mendel Stein MD PATIENT AGE: 71 years COMPARISON: None FINDINGS: No fracture or dislocation. No lytic or blastic change. There is normal mineralization. Mild osteoarthritic changes are present at the acromioclavicular joint. There are postsurgical changes of the left hilum with multiple old left-sided rib fractures. IMPRESSION: No acute finding
[2017-05-29 12:30] VITALS: BP 102/61
[2017-05-29 16:09] VITALS: BP 118/74
[2017-05-29 19:38] VITALS: BP 125/68
[2017-05-30 00:25] VITALS: BP 119/71
[2017-05-30 04:11] VITALS: BP 139/78
--- NOTE | 2017-05-30 07:18 | ACUTE CARE PROGRESS NOTE (QUA) ---
Progress Notes Subjective Date 05/30/17 Time 0715 Note Patient's is not awake and alert this morning and daughter is at bedside. She reports her mother had a difficult day yesterday with difficulty breathing. Despite the fact that she is receiving a breathing treatment 30 minutes before of seen her she still has increased respirations. Patient will open her eyes when her name is called but cannot make any meaningful response. Her daughter tells me that the oncologist has told the patient that her tumor has gotten smaller. CT scan performed at this facility on the day of admission showed enlarging mass with metastatic disease. patient is due to be seen her oncologist next Tuesday. Patient is somnolent. Mild tachypnea. Lungs have diffuse rhonchi both anteriorly and posteriorly without wheezes. Heart has a regular rate and rhythm. Patient has lung cancer with metastases and bilateral infiltrates which I believe are worsening. IV fluids will be discontinued and patient be given Lasix. Fentanyl patch will be started and I will continue the patient's oral narcotics for her pain at this time as this seems to be her most significant problem patient's prognosis is poor. I discussed hospice with the daughter who is at bedside and she is understanding. I will return later today to try to speak with the patient if she is awake enough. Assessment/Plan Problem List 1. RLL pneumonia Qualifiers: Pneumonia type: due to unspecified organism Qualified Code: J18.1 - Lobar pneumonia, unspecified organism 2. Lung cancer Qualifiers: Laterality: left Lung location: hilum of lung Qualified Code: C34.02 - Malignant neoplasm of left main bronchus 3. COPD with acute exacerbation Patient condition Deteriorating Plan: continue current care This inpt stay is expected to cross 2 MNs from start of care Yes at 0717
[2017-05-30 07:29] VITALS: BP 130/71
--- NOTE | 2017-05-30 07:35 | ACUTE CARE PROGRESS NOTE (QUA) ---
Progress Notes Subjective Date 05/30/17 Time 0734 Assessment/Plan Problem List 1. RLL pneumonia 2. Lung cancer 3. COPD with acute exacerbation This inpt stay is expected to cross 2 MNs from start of care Yes Antibiotic Stewardship (2) Current Culture Results Microbiology 05/28 0345 SPUTUM: Organism ID (Sequencing 2)(LALI) - CAN Cancelled: INCLUDED WITH SPUTUM C/S 05/27 1645 BLOOD: Anaerobic Blood Culture - CAN Cancelled: @DUPLICATE 05/27 1645 BLOOD: Aerobic Blood Culture - CAN Cancelled: @DUPLICATE 05/27 1635 SPUTUM: Sputum Culture - RES 05/27 1635 SPUTUM: Gram Stain - RES Infxn that will respond? Yes (CULTURES PENDING) Right drug,dose,and route? Yes More targeted antbx? No at 0767
[2017-05-30 11:47] VITALS: BP 128/77
[2017-05-30 16:35] VITALS: BP 109/62
[2017-05-30 20:07] VITALS: BP 115/71
[2017-05-31] VITALS (9 sets, daily range): BP systolic 98–120; BP diastolic 54–86
--- NOTE | 2017-05-31 07:06 | ACUTE CARE PROGRESS NOTE (QUA) ---
Progress Notes Subjective Date 05/31/17 Time 0704 Note Patient's status is unchanged. Daughter is at bedside. Patient did not eat very much yesterday. We're still having difficulty controlling the patient's pain. She is now on a fentanyl patch in addition to receiving hydrocodone every 4-6 hours. Patient has been made a DO NOT RESUSCITATE and hospice has been consult. Plan is to give the patient some additional time to respond to antibiotics if no improvement I'll I'll patient to transition to hospice care. Patient is sleeping. She opens her eyes briefly when her name is called but did not hold meaningful conversation. Lungs exam revealed faint rhonchi bilaterally. No wheezing at this time. Heart rate is tachycardic. No change in care at this time. Repeat complete blood count as patient has been anemic. Patient has been given Toradol and steroids for bone pain . Objective Findings Last VS-Temp:97.9 B/P:110/66 Pulse:101 Resp:20 SaO2:90 OXYGEN Last weight lbs:113 oz:6 K.426 Method:Bed Scales Assessment/Plan Problem List 1. RLL pneumonia Qualifiers: Pneumonia type: due to unspecified organism Qualified Code: J18.1 - Lobar pneumonia, unspecified organism 2. Lung cancer Qualifiers: Laterality: left Lung location: hilum of lung Qualified Code: C34.02 - Malignant neoplasm of left main bronchus 3. COPD with acute exacerbation Patient condition Guarded Plan: continue current care This inpt stay is expected to cross 2 MNs from start of care Yes at 0706
[2017-05-31 08:47] LABS: LYMPH # 0.3 K/mm3 (0.7-4.5); LYMPH % 3.3 % (10-50.0)
[2017-05-31 08:54] LABS: HEMOGLOBIN 9.4 g/dL (12.2-16.2)
[2017-05-31 09:23] LABS: NEUTROPHILS 94 % (42-76)
[2017-06-01 04:22] VITALS: BP 110/66
[2017-06-01 06:36] LABS: HEMOGLOBIN 8.9 g/dL (12.2-16.2); LYMPH # 0.3 K/mm3 (0.7-4.5); LYMPH % 3.5 % (10-50.0)
--- NOTE | 2017-06-01 06:41 | ACUTE CARE PROGRESS NOTE (QUA) ---
Progress Notes Subjective Date 06/01/17 Time 0639 Note Patient has been awake off and on over night. Her sister is at bedside. There is been some communication between the 2 of them. She states the patient has been reaching up to the shalom for their grandmother. Her pain is still difficult to control. Patient is awake and moaning. She will make eye contact with me when her name is called but does not speak. Lungs have improved aeration and no wheezing although the patient is currently receiving an aerosol treatment. Heart is mildly tachycardic. Sputum has grown Klebsiella oxytoca Patient's pain is not under control. She is not showing any signs of improvement in regards to her pneumonia and I believe her body is too weak to fight her infection. I have spoken with her sister who is at bedside and have recommended that patient's comfort and pain control take top priority and we will allow hospice to take over. Patient may need transfer to the hospice care center to get her pain under control. Hospice will be in this morning to discuss with family. Objective Findings Last VS-Temp:97.5 B/P:110/66 Pulse:100 Resp:20 SaO2:93 OXYGEN Last weight lbs:117 oz:8 K.297 Method:Bed Scales Laboratory Tests 06/01/17 0613: WBC 7.2, RBC 2.78 L, Hgb 8.9 L, Hct 29.1 L, MCV 104.8 H, RDW 17.6 H, Plt Count 133 L, MPV 10.5 H, Gran % 88.6 H, Gran # 6.4, Lymphocytes % 3.5 L, Monocytes % 5.7, Eosinophils % 2.0, Basophils % 0.2, Lymphocytes # 0.3 L, Monocytes # 0.4, Eosinophils # 0.1, Basophils # 0.0, PUBS MCHC 30.6 L, MCH 32.0 H 05/31/17 0837: WBC 7.5, RBC 2.96 L, Hgb 9.4 L, Hct 31.3 L, MCV 105.7 H, RDW 17.3, Plt Count 166, MPV 9.5, Gran % 93.2 H, Gran # 7.0, Total Counted 100, Lymphocytes % 3.3 L, Monocytes % 2.5, Eosinophils % 0.9, Basophils % 0.1, Neutrophils 94 H, Lymphocytes (Manual) 4 L, Lymphocytes # 0.3 L, Monocytes (Manual) 2, Monocytes # 0.2, Eosinophils # 0.1, Basophils # 0.0, Platelet Estimate NORMAL, Macrocytosis 1+, PUBS MCHC 30.0 L, MCH 31.8 H Assessment/Plan Problem List 1. RLL pneumonia Qualifiers: Pneumonia type: due to unspecified organism Qualified Code: J18.1 - Lobar pneumonia, unspecified organism 2. Lung cancer Qualifiers: Laterality: left Lung location: hilum of lung Qualified Code: C34.02 - Malignant neoplasm of left main bronchus 3. COPD with acute exacerbation 4. Klebsiella infection Patient condition Deteriorating Plan: hospice This inpt stay is expected to cross 2 MNs from start of care Yes
[2017-06-01 07:40] VITALS: BP 91/50
[2017-06-01 09:07] VITALS: BP 91/50
[2017-06-01 09:35] VITALS: BP 91/50
--- NOTE | 2017-06-03 07:22 | Discharge Summary ---
Demographics Admit date: 05/27/17 Discharge date: 06/01/17 Discharge diagnoses Problem List 1. RLL pneumonia 2. COPD with acute exacerbation 3. Klebsiella infection 4. Metastatic lung cancer (metastasis from lung to other site) History of present illness History of present illness 71-year-old white female with established diagnosis of lung cancer, follows with Dr. Grisel Robles in [place], and was seen on May 06 after several cycles of chemotherapy and was told that she had had some shrinkage of her tumor burden. Over the past couple of days however, she's had increasing cough, shortness of air and difficulty breathing with some sputum production. He came to the emergency department and was found to have an infiltrate. Given her comorbid conditions with lung cancer, protein calorie malnutrition with low BMI and sputum production she was admitted to hospital for IV antibiotics and enhance pulmonary toilet. She was admitted placed on IV antibiotics and fluids. Patient never improved during hospitalization. Her cognition gradually decreased and while the patient would open her eyes and make eye contact with verbal or tactile stimulus. She remained mostly noncommunicative. Pain remained difficult to control despite increasing doses of pain medications. On May 30 hospice was contacted and came in and discussed hospice as an option with the family. Patient was given additional time to respond to antibiotics but failed to do so. On June 01 patient was transferred to hospice care Center. Medications Medications: Discharge meds are as noted. Follow up Follow up in office in: as needed with: Mendel Stein MD at [id number]
== END 2017-06-01 11:24 | disposition hospice, inpatient (51) | DRG 190 ==
LOC: ER 16:21 → 2ND 19:54 → ER 19:54 → 2ND 20:23
PROVIDERS: Family Medicine; General Practice
DX: J44.0 Chronic obstructive pulmonary disease with (acute) lower respiratory infection (principal); J18.9 Pneumonia, unspecified organism; C34.91 Malignant neoplasm of unspecified part of right bronchus or lung; C79.9 Secondary malignant neoplasm of unspecified site; J44.1 Chronic obstructive pulmonary disease with (acute) exacerbation; Z72.0 Tobacco use; Z91.81 History of falling
CPT/HCPCS: G0238; J0456; Q9967